=== PATIENT | male | born 1965 | race African-American/Black ===

== ENCOUNTER 2016-05-20 19:58 | Emergency (ER) | payer MEDICAID ==
[2016-05-20 20:23] VITALS: BP 138/105
== END 2016-05-20 21:08 | disposition left against medical advice (07) ==
LOC: ER 19:58
DX: Z53.9 Procedure and treatment not carried out, unspecified reason (principal)

== ENCOUNTER 2016-05-21 17:09 | Emergency (ER) | payer MEDICAID ==
[2016-05-21 17:28] VITALS: BP 141/86
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
[2016-05-21] MEDS ORDERED: DIPH/PERTUSS(ACELL)/TETANUS VAC/PF 0.5 ML SYR (>=10YO) IM ONE (18:18)
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
== END 2016-05-21 19:28 | disposition home or self-care (01) ==
LOC: ER 17:09
DX: S50.11XA Contusion of right forearm, initial encounter (principal); X58.XXXA Exposure to other specified factors, initial encounter; F17.200 Nicotine dependence, unspecified, uncomplicated; I10 Essential (primary) hypertension; Z23 Encounter for immunization
CPT/HCPCS: 90471; 90715; 99283

== ENCOUNTER 2016-06-21 07:41 | Emergency (ER) | payer MEDICAID ==
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
[2016-06-21 09:34] VITALS: BP 166/111
== END 2016-06-21 09:34 | disposition home or self-care (01) ==
LOC: ER 07:41
DX: H57.11 Ocular pain, right eye (principal); H57.8 Other specified disorders of eye and adnexa; I10 Essential (primary) hypertension
CPT/HCPCS: 99283

== ENCOUNTER 2017-07-26 06:16 | Emergency (ER) | payer MEDICAID ==
[2017-07-26] MEDS ORDERED: ASPIRIN 81 MG TABLET, CHEWABLE PO ONE (06:18)
[2017-07-26 06:33] LABS: ABSOLUTE EOSINOPHILS # (AUTO) 0.2 10^3/uL (0.0-0.6); ABSOLUTE MONOCYTES (AUTO) 0.9 10^3/uL (0.1-1.4); ABSOLUTE NEUT (AUTO) 4.4 10^3/uL (1.7-8.2); BASOPHILS % (AUTO) 0.5 % (0-2); EOSINOPHILS % (AUTO) 1.9 % (0-6); HEMATOCRIT 43.6 % (37.9-51.0); HEMOGLOBIN 14.3 g/dL (13.5-17.0); LYMPHOCYTES % (AUTO) 41.6 % (13-45); MEAN CORPUSCULAR HEMOGLOBIN 29.2 pg (27.0-33.4); MEAN CORPUSCULAR HGB CONC 32.9 g/dL (32.0-36.0); MEAN CORPUSCULAR VOLUME 89 fl (80-97); MONOCYTES % (AUTO) 9.5 % (3-13); PLATELET COUNT 270 10^3/uL (150-450); RED CELL DISTRIBUTION WIDTH 13.7 % (11.5-14.0); SEGMENTED NEUTROPHILS % (AUTO) 46.5 % (42-78); TOTAL CELLS COUNTED % (AUTO) 100 %; WHITE BLOOD COUNT 9.6 10^3/uL (4.0-10.5)
[2017-07-26 06:47] LABS: ALANINE AMINOTRANSFERASE 49 U/L (21-72); ALBUMIN 4.2 g/dL (3.5-5.0); ALKALINE PHOSPHATASE 83 U/L (38-126); ANION GAP 11 (5-19); ASPARTATE AMINO TRANSFERASE 27 U/L (17-59); BILIRUBIN,DIRECT 0.2 mg/dL (0.0-0.4); BILIRUBIN,TOTAL 0.4 mg/dL (0.2-1.3); BLOOD UREA NITROGEN 10 mg/dL (7-20); CALCIUM 9.2 mg/dL (8.4-10.2); CARBON DIOXIDE 28 mmol/L (22-30); CHLORIDE 108 mmol/L (98-107); CREATINE KINASE 548 U/L (55-170); GLUCOSE 113 mg/dL (75-110); POTASSIUM 3.8 mmol/L (3.6-5.0); SODIUM 147.4 mmol/L (137-145); TOTAL PROTEIN 6.6 g/dL (6.3-8.2)
[2017-07-26] MEDS ORDERED: NORMAL SALINE 1000 ML 1,000 ML IV ONE ×2 (06:49→08:17)
[2017-07-26 06:58] LABS: CREATINE KINASE MB 2.65 ng/mL (<4.55)
[2017-07-26 07:00] LABS: TROPONIN I < 0.012 ng/mL
--- NOTE | 2017-07-26 07:58 | RADIOLOGY REPORT (SQ) ---
EXAM DESCRIPTION: CHEST 2 VIEWS CLINICAL HISTORY: Chest pain COMPARISON: None. FINDINGS: Frontal and lateral views of the chest. The cardiomediastinal silhouette has normal size and contour. No consolidation, pneumothorax, or pleural effusion. Leads overlie the chest. No displaced rib fractures identified. Upper abdominal soft tissues are unremarkable. IMPRESSION: 1. No acute pulmonary process identified.
--- NOTE | 2017-07-26 08:24 | ER Document Report ---
ED General - General Chief Complaint: Chest Wall Pain Stated Complaint: CHEST WALL PAIN Time Seen by Provider: 07/26/17 06:35 TRAVEL OUTSIDE OF THE [place] IN LAST 30 DAYS: No - HPI Patient complains to provider of: Chest pain Notes: Patient coming in for evaluation chest pain started yesterday around 8 to 9:00 in the morning. Patient states he is walking when the chest pain started and remains consistent states hurts when he moves around especially when he moves his left shoulder. Patient denies any other medical issues denies any fevers chills nausea vomiting diarrhea. Patient states he thinks he may have something wrong with his lungs. Patient denies any smoking alcohol or drug abuse. Patient denies any recent travel. Patient denies any other past medical history states he does not take any medications. Patient resting comfortably upon my evaluation - Related Data Allergies/Adverse Reactions: No Known Allergies Allergy (Verified 06/21/16 08:30) Past Medical History - Social History Smoking Status: Unknown if Ever Smoked Family History: Reviewed & Not Pertinent Patient has suicidal ideation: No Patient has homicidal ideation: No - Past Medical History Cardiac Medical History: Reports: Hx Hypertension Renal/ Medical History: Denies: Hx Peritoneal Dialysis - Immunizations Hx Diphtheria, Pertussis, Tetanus Vaccination: No Review of Systems - Review of Systems Constitutional: No symptoms reported EENT: No symptoms reported Cardiovascular: Chest pain Respiratory: No symptoms reported Gastrointestinal: No symptoms reported Genitourinary: No symptoms reported Male Genitourinary: No symptoms reported Musculoskeletal: No symptoms reported Skin: No symptoms reported Hematologic/Lymphatic: No symptoms reported Neurological/Psychological: No symptoms reported -: Yes All other systems reviewed and negative Physical Exam - Vital signs Vitals: Pulse Ox 98 07/26/17 06:18 Interpretation: Normal - General General appearance: Appears well, Alert - HEENT Head: Normocephalic, Atraumatic Eyes: Normal Pupils: PERRL - Respiratory Respiratory status: No respiratory distress Chest status: Tender - Tenderness to palpation of the anterior chest wall. Reproduces patient's pain Breath sounds: Normal Chest palpation: Normal - Cardiovascular Rhythm: Regular Heart sounds: Normal auscultation Murmur: No - Abdominal Inspection: Normal Distension: No distension Bowel sounds: Normal Tenderness: Nontender Organomegaly: No organomegaly - Back Back: Normal, Nontender - Extremities General upper extremity: Normal inspection, Nontender, Normal color, Normal ROM , Normal temperature, Other - Healing abrasions to bilateral shoulders General lower extremity: Normal inspection, Nontender, Normal color, Normal ROM , Normal temperature, Normal weight bearing. No: Tres's sign - Neurological Neuro grossly intact: Yes Cognition: Normal Orientation: AAOx4 [place] Coma Scale Eye Opening: Spontaneous [place] Coma Scale Verbal: Oriented [place] Coma Scale Motor: Obeys Commands [place] Coma Scale Total: 15 Speech: Normal Motor strength normal: LUE, RUE, LLE, RLE Sensory: Normal - Psychological Associated symptoms: Normal affect, Normal mood - Skin Skin Temperature: Warm Skin Moisture: Dry Skin Color: Normal Course - Re-evaluation Re-evalutation: 07/26/17 08:33 Patient with bilateral abrasions to both shoulders on the posterior. Patient otherwise looks to be resting comfortably. The patient has atypical chest pain as the patient's chest pain is not suggestive of pulmonary embolus, cardiac ischemia, aortic dissection, or other serious etiology. Given the extremely low risk of these diagnoses further testing and evaluation for these possibilities does not appear to be indicated at this time. The patient has been instructed to return if the symptoms worsen or change in any way. Troponins negative 2 chest x-ray negative as well - Vital Signs Vital signs: Temp Pulse Resp BP Pulse Ox 16 145/110 H 96 07/26/17 11:01 07/26/17 11:01 07/26/17 11:01 - Laboratory Result Diagrams: 07/26/17 06:05 07/26/17 06:05 Laboratory results interpreted by me: 07/26/17 07/26/17 06:05 09:28 Sodium 147.4 H Chloride 108 H Glucose 113 H Creatine Kinase 548 H Urine Protein 30 H Discharge - Discharge Clinical Impression: Chest wall pain Condition: Good Disposition: HOME, SELF-CARE Instructions: Chest Wall Pain ([facility]), Anti-Inflammatory Medication ([facility]) Additional Instructions: Your laboratory studies EKG did not show any signs of cardiac ischemia heart attack no signs of infection or pneumonia. I do believe your chest pain is due to inflammation within chest wall. Please make sure he follow-up with your primary care physician for further evaluation would recommend taking Tylenol Motrin for your pain. The only other abnormality was that your urine was very concentrated and your examination does show signs of dehydration would recommend drinking plenty water. Blood pressure was slightly elevated today he will need to have your primary care physician to continue to monitor this to see if you require medications for treatment Forms: Smoking Cessation Education, Elevated Blood Pressure Referrals: LEIF EWISS MD [Primary Care Provider] - Follow up as needed
--- NOTE | 2017-07-26 10:21 | EKG REPORT ---
SEVERITY:- ABNORMAL ECG - SINUS RHYTHM CONSIDER ANTEROSEPTAL INFARCT : Confirmed by: Rabia Tapia 26-Jul-2017 10:20:40
[2017-07-26 10:41] LABS: APPEARANCE,URINE CLEAR; BILIRUBIN,URINE NEGATIVE (NEGATIVE); COLOR,URINE YELLOW; GLUCOSE, URINE NEGATIVE (NEGATIVE); KETONES,URINE NEGATIVE (NEGATIVE); LEUKOCYTE ESTERASE,URINE NEGATIVE (NEGATIVE); NITRITE,URINE NEGATIVE (NEGATIVE); PROTEIN,URINE 30 mg/dL (NEGATIVE); URINE SPECIFIC GRAVITY 1.026; UROBILINOGEN,URINE NEGATIVE mg/dL (<2.0)
[2017-07-26 10:50] LABS: URINE AMPHETAMINES SCREEN NEGATIVE; URINE BARBITURATES SCREEN NEGATIVE; URINE BENZODIAZEPINES SCREEN NEGATIVE; URINE COCAINE SCREEN NEGATIVE; URINE MARIJUANA (THC) SCREEN NEGATIVE; URINE METHADONE SCREEN NEGATIVE; URINE PHENCYCLIDINE SCREEN NEGATIVE
[2017-07-26 11:12] VITALS: BP 145/110
--- NOTE | 2017-07-26 21:15 | EKG REPORT ---
SEVERITY:- ABNORMAL ECG - SINUS RHYTHM CONSIDER ANTEROSEPTAL INFARCT : Confirmed by: Rabia Tapia 26-Jul-2017 21:14:39
== END 2017-07-26 11:54 | disposition home or self-care (01) ==
LOC: ER 06:16
DX: R07.89 Other chest pain (principal); I10 Essential (primary) hypertension
CPT/HCPCS: 93005; 99285; 96360; 96361; 36415; 82553; 82550; 83690; 85025; 80053; 81001; 84484; 80307; 71046; 93010; J7030

== ENCOUNTER 2017-09-27 23:28 | Emergency (ER) | payer MEDICAID ==
[2017-09-28 02:07] LABS: INTERNATIONAL RATION (INR) 0.99; PROTHROMBIN TIME 13.6 SEC (11.4-15.4)
[2017-09-28 02:08] LABS: PARTIAL THROMBOPLASTIN TIME 27.4 SEC (23.5-35.8)
[2017-09-28 02:09] LABS: ABSOLUTE BASOPHILS # (AUTO) 0.1 10^3/uL (0.0-0.2); ABSOLUTE EOSINOPHILS # (AUTO) 0.2 10^3/uL (0.0-0.6); ABSOLUTE LYMPHOCYTES (AUTO) 3.7 10^3/uL (0.5-4.7); ABSOLUTE MONOCYTES (AUTO) 0.9 10^3/uL (0.1-1.4); BASOPHILS % (AUTO) 0.9 % (0-2); EOSINOPHILS % (AUTO) 1.4 % (0-6); HEMATOCRIT 38.9 % (37.9-51.0); HEMOGLOBIN 12.7 g/dL (13.5-17.0); LYMPHOCYTES % (AUTO) 30.8 % (13-45); MEAN CORPUSCULAR HEMOGLOBIN 29.5 pg (27.0-33.4); MEAN CORPUSCULAR HGB CONC 32.7 g/dL (32.0-36.0); MEAN CORPUSCULAR VOLUME 90 fl (80-97); MONOCYTES % (AUTO) 7.9 % (3-13); PLATELET COUNT 348 10^3/uL (150-450); RED BLOOD COUNT 4.32 10^6/uL (4.35-5.55); RED CELL DISTRIBUTION WIDTH 13.8 % (11.5-14.0); TOTAL CELLS COUNTED % (AUTO) 100 %; WHITE BLOOD COUNT 11.9 10^3/uL (4.0-10.5)
[2017-09-28 02:19] LABS: ALANINE AMINOTRANSFERASE 63 U/L (21-72); ALBUMIN 4.2 g/dL (3.5-5.0); ALKALINE PHOSPHATASE 73 U/L (38-126); ANION GAP 11 (5-19); ASPARTATE AMINO TRANSFERASE 40 U/L (17-59); BILIRUBIN,DIRECT 0.4 mg/dL (0.0-0.4); BILIRUBIN,TOTAL 0.6 mg/dL (0.2-1.3); BLOOD UREA NITROGEN 15 mg/dL (7-20); CALCIUM 9.8 mg/dL (8.4-10.2); CARBON DIOXIDE 28 mmol/L (22-30); CHLORIDE 111 mmol/L (98-107); GLUCOSE 114 mg/dL (75-110); LIPASE 28.4 U/L (23-300); POTASSIUM 4.2 mmol/L (3.6-5.0); SODIUM 149.9 mmol/L (137-145); TOTAL PROTEIN 7.1 g/dL (6.3-8.2)
--- NOTE | 2017-09-28 02:35 | RADIOLOGY REPORT (SQ) ---
EXAM DESCRIPTION: XR CHEST 2 VIEWS COMPLETED DATE/TME: 09/28/2017 00:00 CLINICAL HISTORY: 52 years Male, cough COMPARISON: None. FINDINGS: Adequate lung volume, clear parenchyma, normal cardiac silhouette, and intact bony thorax. IMPRESSION: No acute cardiopulmonary findings.
[2017-09-28] MEDS ORDERED: PREDNISONE 20 MG TABLET PO ONE (02:48)
[2017-09-28] MEDS ORDERED: IPRATROPIUM/ALBUTEROL 0.5-2.5 MG/3 ML AMPUL NEB ONE (02:48)
[2017-09-28] MEDS ORDERED: HYDROCODONE/ACETAMINOPHEN 5-325 MG TABLET PO ONE (02:49)
--- NOTE | 2017-09-28 02:52 | ER Document Report ---
ED Respiratory Problem - General Chief Complaint: Vomiting Stated Complaint: VOMITING BLOOD Time Seen by Provider: 09/28/17 01:41 Notes: Patient is a 52-year-old male that comes to the emergency department for chief complaint of 3 weeks of worsening cough, he states over the past day his cough is gotten so bad that he is seen flecks of blood in the sputum. He states he cannot sleep because he is coughing so much. He states he initially did have some fevers, chills, and night sweats. He denies any vomiting. Patient states that he smokes, no diagnosed history of COPD, no daily medications, no reported medical history otherwise. He denies alcohol or recreational drugs. TRAVEL OUTSIDE OF THE [place] IN LAST 30 DAYS: No - Related Data Allergies/Adverse Reactions: No Known Allergies Allergy (Verified 06/21/16 08:30) Past Medical History - General Information source: Patient - Social History Smoking Status: Current Every Day Smoker Smoking Education Provided: Yes - <3 min Drug Abuse: None Lives with: Alone Family History: Reviewed & Not Pertinent - Past Medical History Cardiac Medical History: Reports: Hx Hypertension Pulmonary Medical History: Reports: Hx Bronchitis Renal/ Medical History: Denies: Hx Peritoneal Dialysis - Immunizations Hx Diphtheria, Pertussis, Tetanus Vaccination: No Review of Systems - Review of Systems Constitutional: No symptoms reported EENT: No symptoms reported Cardiovascular: No symptoms reported Respiratory: See HPI Gastrointestinal: No symptoms reported Genitourinary: No symptoms reported Male Genitourinary: No symptoms reported Musculoskeletal: No symptoms reported Skin: No symptoms reported Hematologic/Lymphatic: No symptoms reported Neurological/Psychological: No symptoms reported Physical Exam - Vital signs Vitals: Temp Pulse Resp BP Pulse Ox 98.2 F 84 20 135/89 H 95 09/28/17 00:02 09/28/17 00:02 09/28/17 00:02 09/28/17 00:02 09/28/17 00:02 - Notes Notes: GENERAL: Alert, interacts well. No acute distress. HEAD: Normocephalic, atraumatic. EYES: Pupils equal, round, and reactive to light. Extraocular movements intact. ENT: Oral mucosa moist, tongue midline. NECK: Full range of motion. Supple. Trachea midline. LUNGS: Very frequent cough, expiratory wheezes, few scattered rhonchi, minimal tachypnea. No rales. HEART: Regular rate and rhythm. No murmur ABDOMEN: Soft, non-tender. Non-distended. Bowel sounds present in all 4 quadrants. EXTREMITIES: Moves all 4 extremities spontaneously. No edema, normal radial and dorsalis pedis pulses bilaterally. No cyanosis. BACK: no cervical, thoracic, lumbar midline tenderness. No saddle anesthesia, normal distal neurovascular exam. NEUROLOGICAL: Alert and oriented x3. Normal speech. [cranial nerves II through XII grossly intact]. PSYCH: Normal affect, normal mood. SKIN: Warm, dry, normal turgor. No rashes or lesions noted. Course - Re-evaluation Re-evalutation: Patient initially with wheezes, rhonchi, cough. He reports coughing up blood and small flecks. Chest x-ray is unremarkable. No hypoxia or respiratory distress. Wheezing resolved after DuoNeb treatment. Patient feels much better and is not coughing nonstop after medications. Remaining workup is nonspecific. Initial workup placed for vomiting blood according to listed complaint in the computer system and was placed by protocol. Examination is consistent with bronchitis. Discussed smoking cessation, medications, follow-up , and return precautions in detail with patient. Patient states satisfaction and agreement with plan. - Vital Signs Vital signs: Temp Pulse Resp BP Pulse Ox 98.2 F 82 18 178/88 H 97 09/28/17 00:02 09/28/17 04:54 09/28/17 04:54 09/28/17 04:54 09/28/17 04:54 - Laboratory Result Diagrams: 09/28/17 01:52 09/28/17 01:52 Laboratory results interpreted by me: 09/28/17 09/28/17 01:52 01:52 WBC 11.9 H RBC 4.32 L Hgb 12.7 L Sodium 149.9 H Chloride 111 H Glucose 114 H Discharge - Discharge Clinical Impression: Cough, Wheezing, Tobacco abuse Upper respiratory infection Qualifiers: URI type: unspecified URI Qualified Code(s): J06.9 - Acute upper respiratory infection, unspecified Condition: Stable Disposition: HOME, SELF-CARE Additional Instructions: Your workup does not show pneumonia or other concerning abnormality. Your evaluation indicates bronchitis. Take the prednisone as prescribed, use the albuterol inhaler, take syrup if needed for cough, drink plenty fluids and rest. Stop smoking. Follow-up with your primary care provider within the next several days for additional evaluation and management. Return if you worsen including spiking fever, difficulty breathing, passing out, or any other concerning or worsening symptoms. Prescriptions: Hydrocodone Bit/Homatropine [Hycodan Syrup 5-1.5 mg/5 ml Ud Cup] 5 ml PO Q4HP PRN #120 ml PRN Reason: Albuterol Sulfate [Proair HFA Inhalation Aerosol 8.5 gm MDI] 2 puff IH Q4H PRN # 1 mdi PRN Reason: Prednisone 60 mg PO DAILY #15 tablet
[2017-09-28] MEDS ORDERED: ALBUTEROL SULFATE HFA (90 MCG/PUFF) 8 GM MDI (1 MDI/ER DISP) IH ONE (03:33)
[2017-09-28 04:55] VITALS: BP 178/88
== END 2017-09-28 04:53 | disposition home or self-care (01) ==
LOC: ER 23:28
DX: J06.9 Acute upper respiratory infection, unspecified (principal); R06.2 Wheezing; R04.2 Hemoptysis; I10 Essential (primary) hypertension; F17.200 Nicotine dependence, unspecified, uncomplicated
CPT/HCPCS: 94640; 99284; 36415; 80307; 83690; 85025; 85610; 85730; 80053; 71046; J7512; J3490; J7620

== ENCOUNTER 2017-10-13 11:29 | Emergency (ER) | payer MEDICAID ==
--- NOTE | 2017-10-13 11:48 | ER Document Report ---
ED Medical Screen (RME) - General Chief Complaint: Abdominal Pain Stated Complaint: RIGHT SIDE PAIN Time Seen by Provider: 10/13/17 11:42 Notes: Patient is a 52-year-old male who presents with 1 week of right upper quadrant abdominal pain that is worse when he coughs. He was diagnosed with bronchitis and is taking prednisone and doxycycline. No history of liver or gallbladder issues. Denies nausea, vomiting or fevers. PE: RUQ tenderness. Normal bowel sounds. I have greeted and performed a rapid initial assessment of this patient. A comprehensive ED assessment and evaluation of the patient, analysis of test results and completion of the medical decision making process will be conducted by additional ED providers. TRAVEL OUTSIDE OF THE [place] IN LAST 30 DAYS: No - Related Data Allergies/Adverse Reactions: No Known Allergies Allergy (Verified 10/13/17 11:29) Past Medical History - Social History Chew tobacco use (# tins/day): No Frequency of alcohol use: None Drug Abuse: None - Past Medical History Cardiac Medical History: Reports: Hx Hypertension Pulmonary Medical History: Reports: Hx Bronchitis Renal/ Medical History: Denies: Hx Peritoneal Dialysis - Immunizations Hx Diphtheria, Pertussis, Tetanus Vaccination: No Physical Exam - Vital signs Vitals: Temp Pulse Resp BP Pulse Ox 97.8 F 73 18 144/86 H 98 10/13/17 11:35 10/13/17 11:35 10/13/17 11:35 10/13/17 11:35 10/13/17 11:35 Course - Vital Signs Vital signs: Temp Pulse Resp BP Pulse Ox 97.8 F 73 18 144/86 H 98 10/13/17 11:35 10/13/17 11:35 10/13/17 11:35 10/13/17 11:35 10/13/17 11:35
[2017-10-13 12:05] LABS: ABSOLUTE BASOPHILS # (AUTO) 0.1 10^3/uL (0.0-0.2); ABSOLUTE EOSINOPHILS # (AUTO) 0.2 10^3/uL (0.0-0.6); ABSOLUTE LYMPHOCYTES (AUTO) 2.2 10^3/uL (0.5-4.7); ABSOLUTE MONOCYTES (AUTO) 0.6 10^3/uL (0.1-1.4); ABSOLUTE NEUT (AUTO) 5.6 10^3/uL (1.7-8.2); BASOPHILS % (AUTO) 1.1 % (0-2); HEMATOCRIT 39.1 % (37.9-51.0); HEMOGLOBIN 13.3 g/dL (13.5-17.0); LYMPHOCYTES % (AUTO) 25.2 % (13-45); MEAN CORPUSCULAR HEMOGLOBIN 30.4 pg (27.0-33.4); MEAN CORPUSCULAR HGB CONC 34.1 g/dL (32.0-36.0); MEAN CORPUSCULAR VOLUME 89 fl (80-97); MONOCYTES % (AUTO) 7.1 % (3-13); PLATELET COUNT 232 10^3/uL (150-450); RED BLOOD COUNT 4.38 10^6/uL (4.35-5.55); SEGMENTED NEUTROPHILS % (AUTO) 64.6 % (42-78); TOTAL CELLS COUNTED % (AUTO) 100 %; WHITE BLOOD COUNT 8.6 10^3/uL (4.0-10.5)
--- NOTE | 2017-10-13 12:12 | ER Document Report ---
ED General - General Chief Complaint: Abdominal Pain Stated Complaint: RIGHT SIDE PAIN Time Seen by Provider: 10/13/17 11:42 TRAVEL OUTSIDE OF THE [place] IN LAST 30 DAYS: No - Related Data Allergies/Adverse Reactions: No Known Allergies Allergy (Verified 10/13/17 11:29) Past Medical History - Social History Smoking Status: Current Every Day Smoker Chew tobacco use (# tins/day): No Frequency of alcohol use: None Drug Abuse: None Family History: Reviewed & Not Pertinent Patient has suicidal ideation: No Patient has homicidal ideation: No - Past Medical History Cardiac Medical History: Reports: Hx Hypertension Pulmonary Medical History: Reports: Hx Bronchitis Renal/ Medical History: Denies: Hx Peritoneal Dialysis - Immunizations Hx Diphtheria, Pertussis, Tetanus Vaccination: No Physical Exam - Vital signs Vitals: Temp Pulse Resp BP Pulse Ox 97.8 F 73 18 144/86 H 98 10/13/17 11:35 10/13/17 11:35 10/13/17 11:35 10/13/17 11:35 10/13/17 11:35 Course - Vital Signs Vital signs: Temp Pulse Resp BP Pulse Ox 97.8 F 73 18 144/86 H 98 10/13/17 11:35 10/13/17 11:35 10/13/17 11:35 10/13/17 11:35 10/13/17 11:35 - Laboratory Result Diagrams: 10/13/17 11:52 10/13/17 11:52
--- NOTE | 2017-10-13 12:14 | ER Document Report ---
ED General - General Chief Complaint: Abdominal Pain Stated Complaint: RIGHT SIDE PAIN Time Seen by Provider: 10/13/17 11:42 Mode of Arrival: Ambulatory Information source: Patient TRAVEL OUTSIDE OF THE [place] IN LAST 30 DAYS: No - HPI Notes: 52-year-old male presents to the ED with complaints of right upper quadrant abdominal pain for the last week, denies any vomiting but reports he is spitting up, did have a couple episodes of loose stool couple days ago. She denies history of asthma. States she still has a productive cough. Patient is just getting over a bronchitis, finished doxycycline and prednisone that he was given on 09/26/2017 here in the emergency room. States he smokes a pack of cigarettes every 1-2 days. Denies any new travel, food is new to doxycycline and prednisone however this pain did not start until 1 week after he started medication. Denies fevers, chills, chest pain,palpitations, shortness of breath, dyspnea, hematuria,blurred vision, double vision, loss of vision, speech changes, LH, dizziness, syncope, headaches, wheezing, ST, URI, neck pain , weakness, bowel or bladder dysfunction, saddle anesthesia, numbness or tingling in bilateral upper or lower extremities equally, muscle paralysis, weakness in bilateral upper or lower extremities equally or rash. Denies IV drug use. - Related Data Allergies/Adverse Reactions: No Known Allergies Allergy (Verified 10/13/17 11:29) Past Medical History - General Information source: Patient - Social History Smoking Status: Current Every Day Smoker Chew tobacco use (# tins/day): No Frequency of alcohol use: None Drug Abuse: None Family History: Reviewed & Not Pertinent Patient has suicidal ideation: No Patient has homicidal ideation: No - Past Medical History Cardiac Medical History: Reports: Hx Hypertension Pulmonary Medical History: Reports: Hx Bronchitis Renal/ Medical History: Denies: Hx Peritoneal Dialysis - Immunizations Hx Diphtheria, Pertussis, Tetanus Vaccination: No Review of Systems - Review of Systems Constitutional: No symptoms reported EENT: No symptoms reported Cardiovascular: No symptoms reported Respiratory: See HPI Gastrointestinal: See HPI Genitourinary: No symptoms reported Male Genitourinary: No symptoms reported Musculoskeletal: No symptoms reported Skin: No symptoms reported Hematologic/Lymphatic: No symptoms reported Neurological/Psychological: No symptoms reported Physical Exam - Vital signs Vitals: Temp Pulse Resp BP Pulse Ox 97.8 F 73 18 144/86 H 98 10/13/17 11:35 10/13/17 11:35 10/13/17 11:35 10/13/17 11:35 10/13/17 11:35 - Notes Notes: PHYSICAL EXAMINATION: GENERAL: Well-appearing, well-nourished and in no acute distress. HEAD: Atraumatic, normocephalic. EYES: Pupils equal round and reactive to light, extraocular movements intact, sclera anicteric, conjunctiva are normal. ENT: Nares patent, oropharynx clear without exudates. Moist mucous membranes. NECK: Normal range of motion, supple without lymphadenopathy LUNGS: Breath sounds clear to auscultation bilaterally and equal. No wheezes rales or rhonchi. HEART: Regular rate and rhythm without murmurs ABDOMEN: Soft, RUQ tenderness with palpation, + rebound tenderness, + Gideon's sign. nondistended abdomen. No guarding, no rebound. No masses appreciated. Musculoskeletal: Normal range of motion, no pitting or edema. No cyanosis. NEUROLOGICAL: Cranial nerves grossly intact. Normal speech, normal gait. Normal sensory, motor exams PSYCH: Normal mood, normal affect. SKIN: Warm, Dry, normal turgor, no rashes or lesions noted. Course - Re-evaluation Re-evalutation: 10/13/17 12:41 52-year-old male presents to the ED for evaluation of right upper quadrant tenderness. CBC negative for leukocytosis or anemia, CMP negative for any renal or hepatic dysfunction, electrolytes normal. Lipase normal. Chest x-ray within normal limits. Ultrasound abdomen unremarkable. No gallbladder wall thickening. After performing a Medical Screening Examination, I estimate there is LOW risk for ACUTE APPENDICITIS, BOWEL OBSTRUCTION, ACUTE CHOLECYSTITIS, PERFORATED DIVERTICULITIS, INCARCERATED HERNIA , PANCREATITIS, TESTICULAR TORSION or PERFORATED ULCER, thus I consider the discharge disposition reasonable. Also, there is no evidence or peritonitis, sepsis, or toxicity. I have reevaluated this patient multiple times and no significant life threatening changes are noted. The patient and I have discussed the diagnosis and risks, and we agree with discharging home with close follow-up with the understanding that symptoms and presentations can change. We also discussed returning to the Emergency Department immediately if new or worsening symptoms occur. We have discussed the symptoms which are most concerning (e.g., bloody stool, fever, changing or worsening pain, intractable vomiting - standard verbal up date) that necessitate immediate return.Medication warnings reviewed. All questions and concerns answered by this provider. Patient is in agreement with this plan and has verbalized understanding of return precautions and the need for primary care follow-up in the next 24-72 hours. Patient verbalized understanding of plan of care and agree with plan of care. - Vital Signs Vital signs: Temp Pulse Resp BP Pulse Ox 97.8 F 73 18 144/86 H 98 10/13/17 11:35 10/13/17 11:35 10/13/17 11:35 10/13/17 11:35 10/13/17 11:35 - Laboratory Result Diagrams: 10/13/17 11:52 10/13/17 11:52 Laboratory results interpreted by me: 10/13/17 10/13/17 11:52 11:52 Hgb 13.3 L Potassium 3.5 L Glucose 165 H Discharge - Discharge Clinical Impression: RUQ abdominal pain Acute bronchitis Qualifiers: Bronchitis organism: unspecified organism Qualified Code(s): J20.9 - Acute bronchitis, unspecified Condition: Stable Instructions: Abdominal Pain ([facility]), Bronchitis ([facility]), Low-Fat Diet ([facility]), Potassium ([facility]) Prescriptions: Benzonatate [Tessalon Perles 100 mg Capsule] 100 mg PO Q8HP PRN #20 capsule PRN Reason: Albuterol Sulfate [Ventolin Hfa] 1 - 2 puff IH Q4 PRN #1 hfa.aer.ad PRN Reason: Famotidine [Pepcid 20 mg Tablet] 20 mg PO DAILY #12 tablet Prednisone [Deltasone 20 mg Tablet] 3 tab PO DAILY 5 Days #15 tablet Referrals: JOLENE SOTO MD [NO LOCAL MD] - Follow up in 3-5 days LATRICE RODAS MD [ACTIVE STAFF] - Follow up in 3-5 days
[2017-10-13] MEDS ORDERED: IPRATROPIUM/ALBUTEROL 0.5-2.5 MG/3 ML AMPUL NEB ONE (12:22)
[2017-10-13 12:23] LABS: ALANINE AMINOTRANSFERASE 40 U/L (21-72); ALKALINE PHOSPHATASE 80 U/L (38-126); ANION GAP 11 (5-19); ASPARTATE AMINO TRANSFERASE 22 U/L (17-59); BILIRUBIN,DIRECT 0.2 mg/dL (0.0-0.4); BILIRUBIN,TOTAL 0.8 mg/dL (0.2-1.3); BLOOD UREA NITROGEN 12 mg/dL (7-20); CALCIUM 9.1 mg/dL (8.4-10.2); CARBON DIOXIDE 28 mmol/L (22-30); CHLORIDE 106 mmol/L (98-107); GLUCOSE 165 mg/dL (75-110); LIPASE 30.8 U/L (23-300); POTASSIUM 3.5 mmol/L (3.6-5.0); SODIUM 144.7 mmol/L (137-145); TOTAL PROTEIN 6.7 g/dL (6.3-8.2)
[2017-10-13] MEDS ORDERED: FAMOTIDINE 20 MG TABLET PO ONE (12:23)
[2017-10-13] MEDS ORDERED: NORMAL SALINE 1000 ML 1,000 ML IV PRN (12:25)
--- NOTE | 2017-10-13 12:40 | RADIOLOGY REPORT (SQ) ---
EXAM DESCRIPTION: CHEST 2 VIEWS COMPLETED DATE/TIME: 10/13/2017 12:33 pm REASON FOR STUDY: productive cough x 2 weeks, finished abx x5dago COMPARISON: 09/28/2017 EXAM PARAMETERS: NUMBER OF VIEWS: two views TECHNIQUE: Digital Frontal and Lateral radiographic views of the chest acquired. RADIATION DOSE: NA LIMITATIONS: none FINDINGS: LUNGS AND PLEURA: No opacities, masses or pneumothorax. No pleural effusion. MEDIASTINUM AND HILAR STRUCTURES: No masses or contour abnormalities. HEART AND VASCULAR STRUCTURES: Heart normal size. No evidence for failure. BONES: No acute findings. HARDWARE: None in the chest. OTHER: No other significant finding. IMPRESSION: NO ACUTE RADIOGRAPHIC FINDING IN THE CHEST. TECHNICAL DOCUMENTATION: JOB ID: [id number] [employer]- All Rights Reserved Reading location - IP/workstation name: [email or web address]
--- NOTE | 2017-10-13 15:26 | RADIOLOGY REPORT (SQ) ---
EXAM DESCRIPTION: U/S ABDOMEN LIMITED W/O DOP COMPLETED DATE/TIME: 10/13/2017 3:13 pm REASON FOR STUDY: RUQ tenderness COMPARISON: None. TECHNIQUE: Dynamic and static grayscale images acquired of the abdomen and recorded on PACS. Additio nal selected color Doppler and spectral images recorded. LIMITATIONS: None. FINDINGS: PANCREAS: No masses. Visualized pancreatic duct normal caliber. LIVER: No masses. Echotexture normal. LIVER VASCULATURE: Normal directional flow of the main portal vein and hepatic veins. GALLBLADDER: No stones. Normal wall thickness. No pericholecystic fluid. ULTRASOUND-DETECTED MCGOWAN'S SIGN: Negative. INTRAHEPATIC DUCTS AND COMMON DUCT: CBD and intrahepatic ducts normal caliber. No filling defects. INFERIOR VENA CAVA: Normal flow. AORTA: No aneurysm. RIGHT KIDNEY: Normal size. Normal echogenicity. No solid or suspicious masses. No hydronephrosis. No calcifications. PERITONEAL AND RIGHT PLEURAL SPACE: No ascites or effusions. OTHER: No other significant findings. IMPRESSION: NORMAL RIGHT UPPER QUADRANT ULTRASOUND. TECHNICAL DOCUMENTATION: JOB ID: [id number] [employer]- All Rights Reserved Reading location - IP/workstation name: [email or web address]
[2017-10-13 16:00] VITALS: BP 146/97
== END 2017-10-13 16:00 | disposition home or self-care (01) ==
LOC: ER 11:29
DX: J20.9 Acute bronchitis, unspecified (principal); R10.11 Right upper quadrant pain; F17.210 Nicotine dependence, cigarettes, uncomplicated; I10 Essential (primary) hypertension
CPT/HCPCS: 94640; 99284; 96360; 36415; 83690; 85025; 80053; 71046; 76705; J7030; J7620

== ENCOUNTER 2019-01-01 10:59 | Observation (INO) | payer MEDICAID ==
--- NOTE | 2019-01-01 11:19 | ER Document Report ---
ED Medical Screen (RME) - General Chief Complaint: Chest Pain Stated Complaint: CHEST PAIN Time Seen by Provider: 01/01/19 11:15 Mode of Arrival: Medic Information source: Patient Notes: This 53-year-old male presents to the emergency department via EMS from his primary care provider's office for chest pain reports midsternal chest pain that radiates to his back. Patient is extremely tired. EKG shows T wave change in lead III. Patient denies chest pain now. Reports he received aspirin and nitro from EMS and nitro took away the chest pain. No complaints of nausea vomiting diarrhea. Denies history of cardiac disease. I have greeted and performed a rapid initial assessment of this patient. A comprehensive ED assessment and evaluation of the patient, analysis of test results and completion of the medical decision making process will be conducted by additional ED providers. Dictation of this chart was performed using voice recognition software; therefore, there may be some unintended grammatical errors. TRAVEL OUTSIDE OF THE [place] IN LAST 30 DAYS: No - Related Data Allergies/Adverse Reactions: No Known Allergies Allergy (Verified 01/01/19 11:14) Past Medical History - Past Medical History Cardiac Medical History: Reports: Hx Hypertension Pulmonary Medical History: Reports: Hx Bronchitis Renal/ Medical History: Denies: Hx Peritoneal Dialysis - Immunizations Hx Diphtheria, Pertussis, Tetanus Vaccination: No
[2019-01-01 11:42] LABS: ABSOLUTE EOSINOPHILS # (AUTO) 0.1 10^3/uL (0.0-0.6); ABSOLUTE LYMPHOCYTES (AUTO) 2.1 10^3/uL (0.5-4.7); ABSOLUTE MONOCYTES (AUTO) 0.6 10^3/uL (0.1-1.4); ABSOLUTE NEUT (AUTO) 3.6 10^3/uL (1.7-8.2); BASOPHILS % (AUTO) 0.7 % (0-2); HEMATOCRIT 41.8 % (37.9-51.0); HEMOGLOBIN 13.8 g/dL (13.5-17.0); LYMPHOCYTES % (AUTO) 32.9 % (13-45); MEAN CORPUSCULAR HGB CONC 32.9 g/dL (32.0-36.0); MEAN CORPUSCULAR VOLUME 91 fl (80-97); MONOCYTES % (AUTO) 9.4 % (3-13); PLATELET COUNT 214 10^3/uL (150-450); RED CELL DISTRIBUTION WIDTH 13.8 % (11.5-14.0); TOTAL CELLS COUNTED % (AUTO) 100 %; WHITE BLOOD COUNT 6.4 10^3/uL (4.0-10.5)
--- NOTE | 2019-01-01 12:03 | RADIOLOGY REPORT (SQ) ---
EXAM DESCRIPTION: CHEST 2 VIEWS COMPLETED DATE/TIME: 01/01/2019 11:45 am REASON FOR STUDY: cp COMPARISON: Two-view chest 10/13/2017, 09/28/2017, 07/26/2017 EXAM PARAMETERS: NUMBER OF VIEWS: two views TECHNIQUE: Digital Frontal and Lateral radiographic views of the chest acquired. RADIATION DOSE: NA LIMITATIONS: none FINDINGS: LUNGS AND PLEURA: No opacities, masses or pneumothorax. No pleural effusion. MEDIASTINUM AND HILAR STRUCTURES: No masses or contour abnormalities. HEART AND VASCULAR STRUCTURES: Heart normal size. No evidence for failure. BONES: No acute findings. HARDWARE: None in the chest. OTHER: No other significant finding. IMPRESSION: NO ACUTE RADIOGRAPHIC FINDING IN THE CHEST. TECHNICAL DOCUMENTATION: JOB ID: [id number] [employer]- All Rights Reserved Reading location - IP/workstation name: [email or web address]
[2019-01-01 12:07] LABS: ALKALINE PHOSPHATASE 77 U/L (38-126); ANION GAP 9 (5-19); ASPARTATE AMINO TRANSFERASE 21 U/L (17-59); BILIRUBIN,DIRECT 0.1 mg/dL (0.0-0.4); BILIRUBIN,TOTAL 0.7 mg/dL (0.2-1.3); BLOOD UREA NITROGEN 12 mg/dL (7-20); CALCIUM 8.8 mg/dL (8.4-10.2); CARBON DIOXIDE 26 mmol/L (22-30); CHLORIDE 105 mmol/L (98-107); CREATINE KINASE 208 U/L (55-170); GLUCOSE 93 mg/dL (75-110); POTASSIUM 4.1 mmol/L (3.6-5.0); TOTAL PROTEIN 6.7 g/dL (6.3-8.2)
--- NOTE | 2019-01-01 12:21 | ER Document Report ---
ED Cardiac - General Chief Complaint: Chest Pain Stated Complaint: CHEST PAIN Time Seen by Provider: 01/01/19 11:15 Mode of Arrival: Medic Information source: Patient, Relative TRAVEL OUTSIDE OF THE [place] IN LAST 30 DAYS: No - HPI Notes: 53-year-old male presents via EMS to the ED from PCPs office for complaints of chest pain with left-sided numbness and tingling, patient was given 324 baby aspirin and 0.4 mg sublingual of nitro which resolved his chest pain prior to arrival to ED. Per patient's report, states that he had left-sided chest pain that was sharp started around 8 PM yesterday lasted for about 10 minutes then resolved. States this morning he woke up, when he moved to the side he felt left-sided chest pain with left-sided numbness and tingling in his arms and legs, this lasted until 8:30 in the morning, patient was able to ambulate a round, went to [place] to get coffee in the dollar store. Female wire mill rover was concerned and advised patient to go to primary care office. patient went to [facility], this is where EMS was called and brought to [facility] ED. 04/08/2 pack-a-day smoker for the last 30 years, his mother did pass away from a fatal NE at the age of 48 yrs old. Patient denies being on any blood pressure medications or have any cardiac issues prior to this event. Patient denies any numbness or tingling in his left upper or left lower extremities. patient is somewhat a poor historian, unable to respond to questions without extensive questioning. Denies fevers, chills, palpitations, shortness of breath, dyspnea, nausea, vomiting, diarrhea, abdominal pain, hematuria,blurred vision, double vision, loss of vision, speech changes, LH, dizziness, syncope, headaches, wheezing, ST, URI, neck pain, weakness, bowel or bladder dysfunction, saddle anesthesia, muscle paralysis, weakness in bilateral upper or lower extremities equally or rash. - Related Data Allergies/Adverse Reactions: No Known Allergies Allergy (Verified 01/01/19 11:14) Past Medical History - General Information source: Patient, Relative - Social History Smoking Status: Never Smoker Chew tobacco use (# tins/day): No Frequency of alcohol use: None Drug Abuse: None Family History: Reviewed & Not Pertinent Patient has suicidal ideation: No Patient has homicidal ideation: No - Past Medical History Cardiac Medical History: Reports: Hx Hypertension Pulmonary Medical History: Reports: Hx Bronchitis Renal/ Medical History: Denies: Hx Peritoneal Dialysis - Immunizations Hx Diphtheria, Pertussis, Tetanus Vaccination: No Review of Systems - Review of Systems Constitutional: No symptoms reported EENT: No symptoms reported Cardiovascular: See HPI Respiratory: No symptoms reported Gastrointestinal: No symptoms reported Genitourinary: No symptoms reported Male Genitourinary: No symptoms reported Musculoskeletal: No symptoms reported Skin: No symptoms reported Hematologic/Lymphatic: No symptoms reported Neurological/Psychological: No symptoms reported Physical Exam - Vital signs Vitals: Temp Pulse Resp BP Pulse Ox 97.3 F 73 16 136/99 H 99 01/01/19 11:04 01/01/19 11:04 01/01/19 11:04 01/01/19 11:04 01/01/19 11:04 - Notes Notes: PHYSICAL EXAMINATION: GENERAL: Well-appearing, well-nourished and in no acute distress. HEAD: Atraumatic, normocephalic. EYES: Pupils equal round and reactive to light, extraocular movements intact, sclera anicteric, conjunctiva are normal. ENT: Nares patent, oropharynx clear without exudates. Moist mucous membranes. NECK: Normal range of motion, supple without lymphadenopathy LUNGS: Breath sounds clear to auscultation bilaterally and equal. No wheezes rales or rhonchi. HEART: Regular rate and rhythm without murmurs ABDOMEN: Soft, nontender, nondistended abdomen. No guarding, no rebound. No ma sses appreciated. Musculoskeletal: Normal range of motion, no pitting or edema. No cyanosis. NEUROLOGICAL: Cranial nerves grossly intact. Normal speech, normal gait. Normal sensory, motor exams. PERRLA, EOMI. Full motor and sensory function throughout. Cupola Tender + 2 equal bilaterally in BUE. Tongue midline. No pronator drift. No ataxia. Neck with APROM. Raises eyebrows. Strength is 5 out of 5 in bilateral upper and lower extremities equally.Speaks in full sentences. No weakness on one side. Romberg gait steady able to walk straight line. Able to recall 5 objects. PSYCH: Normal mood, normal affect. SKIN: Warm, Dry, normal turgor, no rashes or lesions noted. - Neurological Neuro grossly intact: Yes Orientation: AAOx4 Saurabh Coma Scale Eye Opening: Spontaneous Saurabh Coma Scale Verbal: Oriented Mead Coma Scale Motor: Obeys Commands Saurabh Coma Scale Total: 15 Speech: Normal Cranial nerves: Normal Cerebellar coordination: Normal Motor strength normal: LUE, RUE, LLE, RLE Additional motor exam normals: Equal bottle feeder Babinski reflex: Normal (flexor plantar) Sensory: Normal Biceps - Reflex grade: 2 = Normal Triceps - Reflex grade: 2 = Normal Brachioradialis - Reflex grade: 2 = Normal Knee - Reflex grade: 2 = Normal Ankle - Reflex grade: 2 = Normal Course - Re-evaluation Re-evalutation: 01/01/19 12:21 Afebrile slightly hypertensive, in no acute distress. EKG negative for STEMI, first set of troponin negative, CBC negative for leukocytosis, CMP negative for hepatic or renal dysfunction, no electrolyte disturbances. Chest x-ray unremarkable. CT head shows no acute stroke, this was ordered due to patient stating that he was having left arm numbness and tingling and stated that he had left lower leg numbness and tingling which had resolved prior to going to the doctor's and lasted for approximately 2 hours this morning. Due to risk factors being a half a pack a day to a 2 pack-a-day smoker, being -[place], his mother passing away at age 48 from a fatal NE and having chest pain resolved with nitro, consulted with Dr. Cindy Orellana, hospitalist who will place patient in observation for unstable angina. Patient was agreeable with this plan of care and verbalized understanding of this plan of care. Patient will be placed on telemetry unit under medical service - Vital Signs Vital signs: Temp Pulse Resp BP Pulse Ox 97.8 F 62 20 134/101 H 98 01/01/19 15:10 01/01/19 15:10 01/01/19 15:10 01/01/19 15:10 01/01/19 15:10 - Laboratory Result Diagrams: 01/01/19 11:27 01/01/19 11:27 Laboratory results interpreted by me: 01/01/19 11:27 Creatine Kinase 208 H - EKG Interpretation by Me Additional EKG results interpreted by me: 01/01/19 12:15 EKG shows T wave change in lead III. No ST segment changes. Discharge - Discharge Clinical Impression: Unstable angina Condition: Stable Disposition: ADMITTED OBSERVATION Admitting Provider: Reyna (Hospitalist) Unit Admitted: Telemetry
[2019-01-01 12:30] LABS: CREATINE KINASE MB 1.63 ng/mL (<4.55)
[2019-01-01 12:31] LABS: TROPONIN I < 0.012 ng/mL
--- NOTE | 2019-01-01 12:36 | RADIOLOGY REPORT (SQ) ---
EXAM DESCRIPTION: CT HEAD WITHOUT COMPLETED DATE/TIME: 01/01/2019 12:27 pm REASON FOR STUDY: left sided n/t x 2 hours, resolved COMPARISON: None. TECHNIQUE: Axial images acquired through the brain without intravenous contrast. Images reviewed wi th bone, brain and subdural windows. Additional sagittal and coronal reconstructions were generated. Images stored on PACS. All CT scanners at this facility use dose modulation, iterative reconstruction, and/or weight based d osing when appropriate to reduce radiation dose to as low as reasonably achievable (ALARA). [facility]: Dose Right [facility]: CareDose [facility]: Dose Right [facility]: Teradose 4D [facility]: Accrue [employer] RADIATION DOSE: CT Rad equipment meets quality standard of care and radiation dose reduction techniq ues were employed. CTDIvol: 53.2 mGy. DLP: 991 mGy-cm. mGy. LIMITATIONS: None. FINDINGS: VENTRICLES: Normal size and contour. CEREBRUM: No masses. No hemorrhage. No midline shift. No evidence for acute infarction. Normal gra y/white matter differentiation. No areas of low density in the white matter. CEREBELLUM: No masses. No hemorrhage. No alteration of density. No evidence for acute infarction. EXTRAAXIAL SPACES: No fluid collections. No masses. ORBITS AND GLOBE: No intra- or extraconal masses. Normal contour of globe without masses. CALVARIUM: No fracture. PARANASAL SINUSES: No fluid or mucosal thickening. SOFT TISSUES: No mass or hematoma. OTHER: No other significant finding. IMPRESSION: No acute intracranial pathology. EVIDENCE OF ACUTE STROKE: NO. COMMENT: Quality ID # [id number]: Final reports with documentation of one or more dose reduction techniques (e.g., Automated exposure control, adjustment of the mA and/or kV according to patient size, use of iterative reconstruction technique) TECHNICAL DOCUMENTATION: JOB ID: [id number] [employer]- All Rights Reserved Reading location - IP/workstation name: [email or web address]
[2019-01-01] MEDS ORDERED: IPRATROPIUM/ALBUTEROL 0.5-2.5 MG/3 ML AMPUL NEB PRN (13:58)
[2019-01-01] MEDS ORDERED: NORMAL SALINE 1000 ML 1,000 ML IV PRN (13:58)
[2019-01-01] MEDS ORDERED: ONDANSETRON HCL INJ/PF 4 MG/2 ML SDV IV PRN (13:58)
[2019-01-01] MEDS ORDERED: TEMAZEPAM 7.5 MG CAPSULE PO PRN (13:58)
--- NOTE | 2019-01-01 14:59 | PDOC H&P ---
History of Present Illness Admission Date/PCP: 01/01/19 13:07 RAJNI MODI MD History of Present Illness: VANESSA SYLVESTER JR is a 53 year old male past medical history of untreated h ypertension, heavy smoker for the last 30 years, presenting to ED complaining of chest pain. Brought in to ED via EMS from PCP after complaining of left-sided chest pain, left-sided numbness and tingling, was given 324 mg aspirin, sublingual nitroglycerin which resolved his chest pain. Pain is started yesterday, at 8 PM, left-sided, sharp, lasted about 10 minutes then resolved, worse with movement, alleviated by rest. This morning when he woke up and moved to the side he left-sided chest pain and left-sided numbness and tingling of his arms and legs, lasted about 30 minutes, able to ambulate, female backer up urged him to go to see PCP, went to [facility], EMS was called and [facility]. Chest pain left-sided, sharp, 4/5, worse with movement alleviated with nitroglycerin, associated with left-sided numbness and tingling, denies any diaphoresis, lightheadedness, palpitation. Patient is a heavy smoker, family history is positive CAD in her mother side, of [place] at age 48, was told he has high blood pressure but is not taking any medication. On my encounter patient comfortably resting in bed, chest pain resolved, denies any shortness of breath, nausea, vomiting, diarrhea, abdominal pain, hematuria, constipation, urinary symptoms. CT head negative for any acute abnormalities. Chest x-ray unremarkable. EKG nonspecific T wave changes, troponins x1 negative. Due to patient's risk factors of being a smoker, -Bruneian, hypertension and positive family history of CAD hospitalist was consulted for admission. Past Medical History Cardiac Medical History: Reports: Hypertension Pulmonary Medical History: Reports: Bronchitis Social History Smoking Status: Never Smoker - Advance Directive Resuscitation Status: Full Code Family History Family History: Reviewed & Not Pertinent Parental Family History Reviewed: Yes - CAD Children Family History Reviewed: Yes Sibling(s) Family History Reviewed.: Yes Medication/Allergy Home Medications: Albuterol Sulfate [Proair HFA Inhalation Aerosol 8.5 gm MDI] 2 puff IH Q4H PRN #1 mdi 06/23/18 Hydrocodone Bit/Homatropine [Hycodan Syrup 5-1.5 mg/5 ml Ud Cup] 5 ml PO Q4HP PRN #120 ml 09/28/17 Prednisone 60 mg PO DAILY #15 tablet 09/28/17 Albuterol Sulfate [Ventolin Hfa] 1 - 2 puff IH Q4 PRN #1 hfa.aer.ad 10/13/17 Benzonatate [Tessalon Perles 100 mg Capsule] 100 mg PO Q8HP PRN #20 capsule 10/13/17 Famotidine [Pepcid 20 mg Tablet] 20 mg PO DAILY #12 tablet 10/13/17 Prednisone [Deltasone 20 mg Tablet] 3 tab PO DAILY 5 Days #15 tablet 10/13/17 Allergies/Adverse Reactions: No Known Allergies Allergy (Verified 01/01/19 11:14) Review of Systems Review of Systems: as per hpi Physical Exam Vital Signs: Temp Pulse Resp BP Pulse Ox 97.8 F 20 139/89 H 98 01/01/19 13:01 01/01/19 13:01 01/01/19 13:01 01/01/19 13:01 General appearance: PRESENT: no acute distress, well-developed, well-nourished Head exam: PRESENT: atraumatic, normocephalic Eye exam: PRESENT: conjunctiva pink, EOMI, PERRLA. ABSENT: scleral icterus Ear exam: PRESENT: normal external ear exam Mouth exam: PRESENT: moist, tongue midline Neck exam: ABSENT: carotid bruit, JVD, lymphadenopathy, thyromegaly Respiratory exam: PRESENT: clear to auscultation priya. ABSENT: rales, rhonchi, wheezes Cardiovascular exam: PRESENT: RRR. ABSENT: diastolic murmur, rubs, systolic murmur Pulses: PRESENT: normal dorsalis pedis pul Vascular exam: PRESENT: normal capillary refill GI/Abdominal exam: PRESENT: normal bowel sounds, soft. ABSENT: distended, guarding, mass, organolmegaly, rebound, tenderness Rectal exam: PRESENT: deferred Extremities exam: PRESENT: full ROM. ABSENT: calf tenderness, clubbing, pedal edema Neurological exam: PRESENT: alert, awake, oriented to person, oriented to place, oriented to time, oriented to situation, CN II-XII grossly intact. ABSENT: motor sensory deficit Psychiatric exam: PRESENT: appropriate affect, normal mood. ABSENT: homicidal ideation, suicidal ideation Skin exam: PRESENT: dry, intact, warm. ABSENT: cyanosis, rash Results Laboratory Results: 01/01/19 11:27 01/01/19 11:27 01/01/19 01/01/19 11: 11:27 WBC 6.4 RBC 4.60 Hgb 13.8 Hct 41.8 MCV 91 MCH 30.0 MCHC 32.9 RDW 13.8 Plt Count 214 Seg Neutrophils % 56.0 Sodium 139.8 Potassium 4.1 Chloride 105 Carbon Dioxide 26 Anion Gap 9 BUN 12 Creatinine 1.01 Est GFR ( Amer) > 60 Glucose 93 Calcium 8.8 Total Bilirubin 0.7 AST 21 Alkaline Phosphatase 77 Total Protein 6.7 Albumin 4.0 01/01/19 01/01/19 11:27 11:27 Creatine Kinase 208 H CK-MB (CK-2) 1.63 Troponin I < 0.012 Impressions: Chest X-Ray 01/01/19 11:17 IMPRESSION: NO ACUTE RADIOGRAPHIC FINDING IN THE CHEST. Head CT 01/01/19 12:14 IMPRESSION: No acute intracranial pathology. EVIDENCE OF ACUTE STROKE: NO. Assessment and Plan - Diagnosis (1) Chest pain Qualifiers: Chest pain type: other chest pain Qualified Code(s): R07.89 - Other chest pain; R07.8 - Other chest pain Is this a current diagnosis for this admission?: Yes Plan: In the absence of typical chest pain, elevated troponins and acute EKG changes unlikely this is cardiac related. Due to patient's risk factors such as heavy smoking, hypertension and positive family history will admit to telemetry observation. Start on antiplatelets, statins, trend troponins, sublingual nitroglycerin, morphine, will get hemoglobin A1c, lipid panel and Cardiolite stress test for further risk stratification. (2) Tobacco abuse Is this a current diagnosis for this admission?: Yes Plan: Advised on quitting. Nicotine patch will be provided.
[2019-01-01] MEDS ORDERED: HYDRALAZINE HCL INJ/PF 20 MG/1 ML SDV IV PRN (15:00)
[2019-01-01] MEDS ORDERED: LISINOPRIL 5 MG TABLET PO SCH (15:15)
[2019-01-01] MEDS: ACETAMINOPHEN 325 MG TABLET PO PRN ×2 (16:35→21:58)
[2019-01-01] MEDS ORDERED: NITROGLYCERIN 0.4 MG/TAB 25 TAB/BOTTLE SL PRN (16:44)
[2019-01-01] MEDS ORDERED: MORPHINE SULFATE 10 MG/ML INJ IV PRN (16:44)
[2019-01-01 19:14] LABS: URINE AMPHETAMINES SCREEN NEGATIVE; URINE BARBITURATES SCREEN NEGATIVE; URINE BENZODIAZEPINES SCREEN NEGATIVE; URINE COCAINE SCREEN NEGATIVE; URINE MARIJUANA (THC) SCREEN NEGATIVE; URINE METHADONE SCREEN NEGATIVE; URINE PHENCYCLIDINE SCREEN NEGATIVE
[2019-01-01] MEDS: FAMOTIDINE 20 MG TABLET PO SCH (21:58)
[2019-01-01] MEDS ORDERED: ATORVASTATIN CALCIUM 40 MG TABLET PO SCH (22:00)
[2019-01-02] MEDS: ACETAMINOPHEN 325 MG TABLET PO PRN (05:01)
[2019-01-02 05:51] LABS: ABSOLUTE EOSINOPHILS # (AUTO) 0.1 10^3/uL (0.0-0.6); ABSOLUTE LYMPHOCYTES (AUTO) 2.5 10^3/uL (0.5-4.7); ABSOLUTE MONOCYTES (AUTO) 0.5 10^3/uL (0.1-1.4); ABSOLUTE NEUT (AUTO) 3.2 10^3/uL (1.7-8.2); BASOPHILS % (AUTO) 0.7 % (0-2); EOSINOPHILS % (AUTO) 1.7 % (0-6); HEMATOCRIT 40.1 % (37.9-51.0); LYMPHOCYTES % (AUTO) 39.1 % (13-45); MEAN CORPUSCULAR HEMOGLOBIN 29.6 pg (27.0-33.4); MEAN CORPUSCULAR HGB CONC 32.5 g/dL (32.0-36.0); MEAN CORPUSCULAR VOLUME 91 fl (80-97); MONOCYTES % (AUTO) 8.6 % (3-13); PLATELET COUNT 219 10^3/uL (150-450); RED BLOOD COUNT 4.41 10^6/uL (4.35-5.55); RED CELL DISTRIBUTION WIDTH 13.4 % (11.5-14.0); SEGMENTED NEUTROPHILS % (AUTO) 49.9 % (42-78); TOTAL CELLS COUNTED % (AUTO) 100 %; WHITE BLOOD COUNT 6.3 10^3/uL (4.0-10.5)
[2019-01-02 06:06] LABS: CHOLESTEROL 60.19 mg/dL (0-200); TRIGLYCERIDES 121 mg/dL (<150)
[2019-01-02 06:13] LABS: ANION GAP 7 (5-19); BLOOD UREA NITROGEN 12 mg/dL (7-20); CALCIUM 8.5 mg/dL (8.4-10.2); CARBON DIOXIDE 26 mmol/L (22-30); CHLORIDE 107 mmol/L (98-107); GLUCOSE 101 mg/dL (75-110)
[2019-01-02 06:16] LABS: DIRECT LDL 38 mg/dL (<100)
[2019-01-02] MEDS ORDERED: LISINOPRIL 5 MG TABLET PO SCH (10:00)
[2019-01-02] MEDS ORDERED: ASPIRIN 81 MG TABLET, CHEWABLE PO SCH (10:00)
[2019-01-02] MEDS ORDERED: ENOXAPARIN SODIUM INJ 40 MG/0.4 ML DISP.SYRIN SUBCUT SCH (10:00)
[2019-01-02 10:03] VITALS: BP 148/96
[2019-01-02] MEDS ORDERED: REGADENOSON INJ 0.4 MG/5 ML DISP.SYRIN IV ONE (13:29)
[2019-01-02] MEDS: FAMOTIDINE 20 MG TABLET PO SCH (13:35)
--- NOTE | 2019-01-03 00:24 | DRAGON STRESS TEST REPORT ---
Intravenous Lexiscan Cardiolite stress test using single photon emmision computerized tomography. Date of procedure: 01/02/2019. Ordering Provider: Dr. Orellana. Patient's status: In Patient. Indication: Chest pain. Coronary risk factors: Age, hypertension, dyslipidemia, tobacco abuse disorder, and family history of coronary artery disease. Resting EKG: Sinus Rhythm. Diffuse nonspecific T inversion. Stress EKG: No changes of ischemia. She had no chest pain or discomfort, and there is no arrhythmia seen. Reason for termination: Protocol. Conclusions: Normal EKG and hemodynamic response to IV Lexiscan. Nuclear data: At rest the patient was given 12.09 millicuries of technetium 99m sestamibi injected intravenously. As per protocol rest non gated SPECT images were obtained. Subsequently the patient was given intravenous Lexiscan at a dose of 0.4 mg in 5 mL intravenously, followed by flush with normal saline. Subsequently the stress dose of 38.8 millicuries of technetium 99m sestamibi was injected intravenously. As per protocol stress gated images were obtained. Nuclear interpretation: Review of images showed that all segments of the myocardium had normal perfusion at rest, and normal perfusion post stress with IV Lexiscan. All segments of the myocardium had normal motion, contraction, and thickening by gated study. T. I D. ratio was normal at 1.11. There is no transient ischemic dilatation of the left ventricle. Computer read rest, and stress left ventricular ejection fraction were 56 %, and 53 %, respectively. Visually both the stress and rest ejection fractions were normal, and greater than 55%. Conclusion: 1. There is no scintigraphic evidence of Lexiscan induced myocardial ischemia. 2. There is no scintigraphic evidence of myocardial infarction/scar. Recommendations: Aggressive risk factor modification, and treating the underlying co- morbidities. [facility]
--- NOTE | 2019-01-03 08:53 | EKG REPORT ---
SEVERITY:- ABNORMAL ECG - SINUS RHYTHM CONSIDER ANTEROSEPTAL INFARCT BORDERLINE T ABNORMALITIES, INFERIOR LEADS : Confirmed by: Rabia Tapia 03-Jan-2019 08:52:33
--- NOTE | 2019-01-08 11:45 | Left Against Medical Advice ---
Against Medical Advice Admission Date/Time: 01/01/19 13:07 Primary Care Provider: RAJNI MODI MD Date of Patient Emigration: 01/02/19 - Diagnosis: (1) Chest pain Is this a current diagnosis for this admission?: Yes (2) Tobacco abuse Is this a current diagnosis for this admission?: Yes - Summary: Summary: Please see Admission and Progress Notes as well. VANESSA SYLVESTER JR is a 53 M, who LEFT AGAINST MEDICAL ADVICE. The Patient was admitted on 01/01/19 13:07. VANESSA SYLVESTER JR is a 53 year old male past medical history of untreated hypertension, heavy smoker for the last 30 years, presenting to ED complaining of chest pain. Brought in to ED via EMS from PCP after complaining of left-sided chest pain, left-sided numbness and tingling, was given 324 mg aspirin, sublingual nitroglycerin which resolved his chest pain. Pain is started yesterday, at 8 PM, left-sided, sharp, lasted about 10 minutes then resolved, worse with movement, alleviated by rest. This morning when he woke up and moved to the side he left-sided chest pain and left-sided numbness and tingling of his arms and legs, lasted about 30 minutes, able to ambulate, female real estate photographer urged him to go to see PCP, went to [facility], EMS was called and patient brought to [facility]. Chest pain left-sided, sharp, 4/5, worse with movement alleviated with nitroglycerin, associated with left-sided numbness and tingling, denies any diaphoresis, lightheadedness, palpitation. Patient is a heavy smoker, family history is positive CAD in her mother side, of [place] at age 48, was told he has high blood pressure but is not taking any medication. On my encounter patient comfortably resting in bed, chest pain resolved, denies any shortness of breath, nausea, vomiting, diarrhea, abdominal pain, hematuria, constipation, urinary symptoms. CT head negative for any acute abnormalities. Chest x-ray unremarkable. EKG nonspecific T wave changes, troponins x1 negative. Due to patient's risk factors of being a smoker, -Cymraes, hypertension and positive family history of CAD hospitalist was consulted for admission. Troponins remained negative and pt was admitted to telemetry and Nuclear Stress test was done and reported as negative but unfortunately left AMA before receiving or discussing the results.
== END 2019-01-02 14:20 | disposition left against medical advice (07) ==
LOC: ER 10:59 → EH 13:07 → 5 14:37
PROVIDERS: ADMIT Internal Medicine; ATTEND Internal Medicine
DX: R07.89 Other chest pain (principal); F17.210 Nicotine dependence, cigarettes, uncomplicated; I10 Essential (primary) hypertension; R20.0 Anesthesia of skin; R20.2 Paresthesia of skin; R53.83 Other fatigue; Z82.49 Family history of ischemic heart disease and other diseases of the circulatory system
CPT/HCPCS: 93005; 99285; 36415 ×2; 82553; 82550; 85025 ×2; 80048; 80053; 84484 ×2; 80307; 83036; 80061; 93017; 71046; 78452; 70450; 93010; G0378 ×3; A9500; J2785; J3490 ×7; J2270; J7030; Q9969

== ENCOUNTER 2019-01-06 17:00 | Emergency (ER) | payer MEDICAID ==
--- NOTE | 2019-01-06 18:24 | ER Document Report ---
ED General - General Chief Complaint: Arm Problem Stated Complaint: ARM SWELLING Time Seen by Provider: 01/06/19 17:45 Primary Care Provider: RAJNI MODI MD [Primary Care Provider] - Follow up as needed Notes: 53-year-old male presents the emergency department complaining of right arm swelling and pain that started on the after getting IV inserted and has been getting progressively worse since then. Denies any numbness, tingling, weakness, fevers. Denies any discharge. Patient states that the swelling is mostly over his right bicep as is the pain. Denies any pain or swelling radiating into his lower arm. Patient also states that he would like his results. Patient states that he left the hospital prior to getting his results when he was admitted on the for chest pain. Patient denies having any chest pain today. He did have some pain a few days after leaving the hospital but is not currently having any and has not had some for the past several days. TRAVEL OUTSIDE OF THE [place] IN LAST 30 DAYS: No - Related Data Allergies/Adverse Reactions: No Known Allergies Allergy (Verified 01/06/19 17:37) Past Medical History - General Information source: Patient - Social History Smoking Status: Current Every Day Smoker Chew tobacco use (# tins/day): No Frequency of alcohol use: None Drug Abuse: None Family History: Reviewed & Not Pertinent Patient has suicidal ideation: No Patient has homicidal ideation: No - Past Medical History Cardiac Medical History: Reports: Hx Hypertension Pulmonary Medical History: Reports: Hx Bronchitis Renal/ Medical History: Denies: Hx Peritoneal Dialysis - Immunizations Hx Diphtheria, Pertussis, Tetanus Vaccination: No Review of Systems - Review of Systems Constitutional: No symptoms reported Cardiovascular: See HPI Musculoskeletal: See HPI Skin: See HPI -: Yes All other systems reviewed and negative Physical Exam - Vital signs Vitals: Temp Pulse BP Pulse Ox 98.7 F 103 H 154/105 H 97 01/06/19 17:10 01/06/19 17:10 01/06/19 17:10 01/06/19 17:10 Interpretation: Hypertensive, Tachycardic - Notes Notes: GENERAL: Alert, interacts well. No acute distress. HEAD: Normocephalic, atraumatic EYES: Pupils equal, round and reactive to light, extraocular movements intact. ENT: Oral mucosa moist, tongue midline. NECK: Full range of motion, supple, trachea midline. LUNGS: Clear to auscultation bilaterally, no wheezes, rales or rhonchi, no respiratory distress. HEART: Regular rate and rhythm, no murmurs, gallops, rubs. EXTREMITIES: Moves all 4 extremities spontaneously, no edema, radial pulses 2/4 bilaterally. No cyanosis. NEUROLOGICAL: Alert and oriented x3, normal speech. Sensation is intact to the hand, 5 out of 5 muscle strength, good nail galvanizer, no difficulty resisting flexion or extension. PSYCH: Normal mood, normal affect. SKIN: Erythema noted to the right antecubital fossa and progressing upwards to cover the entire biceps muscle on the right, there is some edema, tender to palpation, hot to the touch, no discharge. No lymphangitic streaking. Course - Re-evaluation Re-evalutation: 01/06/19 21:06 CBC unremarkable, coags normal, CMP grossly unremarkable only slightly elevated glucose at 129, troponin negative. Venous Doppler is preliminarily negative. There is no evidence of abscess on the ultrasound. Patient appears to have a cellulitis/superficial thrombophlebitis which is likely infected. Patient will be treated with Bactrim and Keflex. Discharged home with advice on warm compresses. - Vital Signs Vital signs: Temp Pulse Resp BP Pulse Ox 98.7 F 103 H 154/105 H 97 01/06/19 17:10 01/06/19 17:10 01/06/19 17:10 01/06/19 17:10 - Laboratory Result Diagrams: 01/06/19 18:24 01/06/19 18:24 Laboratory results interpreted by me: 01/06/19 18:24 Glucose 129 H Discharge - Discharge Clinical Impression: Right arm cellulitis, Thrombophlebitis arm Condition: Stable Disposition: HOME, SELF-CARE Additional Instructions: Apply warm wet compresses to the area for 20 minutes every hour while you are awake. This will help to resolve the infection in the very superficial blood clot that you have. Please take the antibiotics directed as below they are gone. Please use ibuprofen (Motrin or Advil) 600-800 mg every 8 hours as needed for pain or fever. You may also use acetaminophen (Tylenol) 1000 mg every 4-6 hours as needed for pain or fever. Please be aware that many medications contain acetaminophen, do not exceed a total of 1000 mg of acetaminophen every 6 hours. Please return to the emergency department for fever, increasing pain, increasing swelling or streaking of redness away from the area that is already red. Your stress test did not show any signs that you are actively having a heart attack or that you need a heart catheterization. It did say that you need "aggressive risk factor reduction" please follow-up with your primary care physician in [place] to discuss checking for signs of diabetes and making sure that your high blood pressure is well controlled. Is also very important that you quit smoking. Prescriptions: Sulfamethoxazole/Trimethoprim [Bactrim Ds Tablet] 1 each PO BID #20 tablet Cephalexin Monohydrate [Keflex 500 mg Capsule] 1,000 mg PO BID #40 capsule Referrals: RAJNI MODI MD [Primary Care Provider] - Follow up as needed
[2019-01-06 18:38] LABS: ABSOLUTE BASOPHILS # (AUTO) 0.1 10^3/uL (0.0-0.2); ABSOLUTE EOSINOPHILS # (AUTO) 0.1 10^3/uL (0.0-0.6); ABSOLUTE LYMPHOCYTES (AUTO) 2.1 10^3/uL (0.5-4.7); ABSOLUTE MONOCYTES (AUTO) 0.8 10^3/uL (0.1-1.4); BASOPHILS % (AUTO) 0.8 % (0-2); EOSINOPHILS % (AUTO) 1.3 % (0-6); HEMATOCRIT 41.6 % (37.9-51.0); HEMOGLOBIN 13.5 g/dL (13.5-17.0); LYMPHOCYTES % (AUTO) 25.5 % (13-45); MEAN CORPUSCULAR HEMOGLOBIN 29.5 pg (27.0-33.4); MEAN CORPUSCULAR HGB CONC 32.4 g/dL (32.0-36.0); MEAN CORPUSCULAR VOLUME 91 fl (80-97); MONOCYTES % (AUTO) 10.4 % (3-13); PLATELET COUNT 255 10^3/uL (150-450); RED BLOOD COUNT 4.57 10^6/uL (4.35-5.55); RED CELL DISTRIBUTION WIDTH 13.4 % (11.5-14.0); TOTAL CELLS COUNTED % (AUTO) 100 %
[2019-01-06 18:45] LABS: INTERNATIONAL RATION (INR) 0.99; PROTHROMBIN TIME 13.1 SEC (11.4-15.4)
[2019-01-06] MEDS ORDERED: HYDROCODONE/ACETAMINOPHEN 5-325 MG TABLET PO ONE (18:50)
[2019-01-06 18:58] LABS: ALKALINE PHOSPHATASE 81 U/L (38-126); ANION GAP 8 (5-19); ASPARTATE AMINO TRANSFERASE 24 U/L (17-59); BILIRUBIN,DIRECT 0.1 mg/dL (0.0-0.4); BILIRUBIN,TOTAL 0.6 mg/dL (0.2-1.3); BLOOD UREA NITROGEN 9 mg/dL (7-20); CALCIUM 9.3 mg/dL (8.4-10.2); CARBON DIOXIDE 27 mmol/L (22-30); CHLORIDE 106 mmol/L (98-107); GLUCOSE 129 mg/dL (75-110)
[2019-01-06] MEDS ORDERED: HYDROCODONE/ACETAMINOPHEN 5-325 MG (6 TAB/ER DISP) PO PRN (21:15)
[2019-01-06] MEDS ORDERED: CEPHALEXIN 500 MG CAPSULE PO ONE (21:17)
[2019-01-06] MEDS ORDERED: SULFAMETHOXAZOLE/TRIMETHOPRIM 800-160 MG TABLET PO ONE (21:17)
[2019-01-06 21:38] VITALS: BP 149/102
--- NOTE | 2019-01-07 08:11 | RADIOLOGY REPORT (SQ) ---
EXAM DESCRIPTION: VENOUS UNILATERAL UPPER COMPLETED DATE/TIME: 01/06/2019 7:52 pm REASON FOR STUDY: right arm swelling, redness, pain, r/o DVT, abcess COMPARISON: None. TECHNIQUE: Dynamic and static rubi scale and color images acquired of the right arm venous system. S elected spectral images acquired with additional compression and augmentation maneuvers. The contrala teral subclavian vein and internal jugular vein were also imaged. Images stored on PACS. LIMITATIONS: None. FINDINGS: INTERNAL JUGULAR VEIN: Normal phasicity, compression, augmentation. No visualized echogeni c material on rubi scale. No defects on color images. Comparison opposite side normal. SUBCLAVIAN VEIN: Normal compression, augmentation. No visualized echogenic material on rubi scale. No defects on color images. AXILLARY VEIN: The axillary vein could not be visualized. BRACHIAL VEIN: Normal compression, augmentation. No visualized echogenic material on rubi scale. No d efects on color images. BASILIC VEIN: Normal compression, augmentation. No visualized echogenic material on rubi scale. No de fects on color images. CEPHALIC VEIN: Normal compression, augmentation. No visualized echogenic material on rubi scale. No d efects on color images. OTHER: No other significant finding. IMPRESSION: Nonvisualization of the right axillary vein. Remainder of the deep and superficial syst em is patent. COMMENT: This report was called to DEYSI BERMUDEZ DO [id number] hours on 01/07/2019. Preliminary poor was called by the medical technologist microbiology. TECHNICAL DOCUMENTATION: JOB ID: [id number] [email or web address]- All Rights Reserved Reading location - IP/workstation name: [email or web address]
== END 2019-01-06 21:38 | disposition home or self-care (01) ==
LOC: ER 17:00
DX: L03.113 Cellulitis of right upper limb (principal); I80.8 Phlebitis and thrombophlebitis of other sites; F17.200 Nicotine dependence, unspecified, uncomplicated; I10 Essential (primary) hypertension
CPT/HCPCS: 36415; 87040; 85025; 85610; 85730; 80053; 84484; 93971; J3490

== ENCOUNTER 2019-01-16 00:04 | Emergency (ER) | payer MEDICAID ==
[2019-01-16] MEDS ORDERED: CEPHALEXIN 500 MG CAPSULE PO ONE (02:06)
--- NOTE | 2019-01-16 02:11 | ER Document Report ---
ED General - General Chief Complaint: Cough Stated Complaint: COUGH Time Seen by Provider: 01/16/19 01:49 Primary Care Provider: RAJNI MODI MD [Primary Care Provider] - Follow up as needed TRAVEL OUTSIDE OF THE [place] IN LAST 30 DAYS: No - HPI Notes: 53-year-old male presents with sore throat difficult he swallowing. Ongoing the last day or 2. No fever, worse on laying flat. Moderate intensity, gradual onset, nonradiating. Denies any history of HIV. No fever. Initially denied any use of inhalational cocaine/smoking crack, however, states he used to do it but not anymore. No other modifying factors, no other associated symptoms, no other provocative or palliative factors. - Related Data Allergies/Adverse Reactions: No Known Allergies Allergy (Verified 01/06/19 17:37) Past Medical History - Social History Smoking Status: Current Every Day Smoker Chew tobacco use (# tins/day): No Frequency of alcohol use: None Drug Abuse: None Family History: Reviewed & Not Pertinent Patient has suicidal ideation: No Patient has homicidal ideation: No - Past Medical History Cardiac Medical History: Reports: Hx Hypertension Pulmonary Medical History: Reports: Hx Bronchitis Renal/ Medical History: Denies: Hx Peritoneal Dialysis - Immunizations Hx Diphtheria, Pertussis, Tetanus Vaccination: No Review of Systems - Review of Systems Notes: Review of systems as in the history of present illness, otherwise negative x 10 systems. Physical Exam - Vital signs Vitals: Temp Pulse Resp BP Pulse Ox 98.6 F 83 17 155/94 H 100 01/16/19 00:20 01/16/19 00:20 01/16/19 00:20 01/16/19 00:20 01/16/19 00:20 - Notes Notes: General: Well developed . HEENT: Normocephalic, atraumatic. Pupils equal round reactive to light. No JVD. Moderate uvular edema and erythema Chest: No trauma. Respiratory: Good air exchange, normal excursion. Cardiac: Regular rhythm. No murmurs or gallops. Abdomen: Soft, benign. Nondistended. Nontender. Back: No asymmetry or gross abnormality. Motor: Grossly normal power and tone. Neurologic: Alert, nonfocal. Cranial nerves II-12 are intact. Sensation intact. Vascular: Well perfused. Normal peripheral pulses. Skin: No petechiae or purpura. Course - Re-evaluation Re-evalutation: 01/16/19 02:08 53-year-old male presents with what appears to be uvulitis, may be factious, viral versus bacterial. May be traumatic such as from gas inhalation. This point he is stable, protecting his airway easily, isolated uvulitis, will err on the side of caution and treat with an antibiotic. Should he develop any worsening symptoms, will return immediately. - Vital Signs Vital signs: Temp Pulse Resp BP Pulse Ox 98.6 F 83 17 155/94 H 100 01/16/19 00:20 01/16/19 00:20 01/16/19 00:20 01/16/19 00:20 01/16/19 00:20 Discharge - Discharge Clinical Impression: Uvulitis Disposition: HOME, SELF-CARE Instructions: Sore Throat ([facility]) Prescriptions: Cephalexin Monohydrate [Keflex 500 mg Capsule] 500 mg PO QID #28 capsule Referrals: RAJNI MODI MD [Primary Care Provider] - Follow up as needed
[2019-01-16 02:15] VITALS: BP 150/87
== END 2019-01-16 02:15 | disposition home or self-care (01) ==
LOC: ER 00:04
DX: K12.2 Cellulitis and abscess of mouth (principal); R05 Cough; F17.200 Nicotine dependence, unspecified, uncomplicated; I10 Essential (primary) hypertension
CPT/HCPCS: 87070; 87880; 99283

== ENCOUNTER 2019-03-07 22:56 | Emergency (ER) | payer MEDICAID ==
[2019-03-08] MEDS ORDERED: LIDOCAINE 1%/EPINEPHRINE INJ 20 ML VIAL INJ ONE (05:27)
[2019-03-08] MEDS ORDERED: DIPH/PERTUSS(ACELL)/TETANUS VAC/PF 0.5 ML SYR (>=10YO) IM ONE (05:27)
--- NOTE | 2019-03-08 06:32 | ER Document Report ---
HPI - HPI Time Seen by Provider: 03/08/19 05:19 Pain Level: Denies Context: 53-year-old male with hypertension noncompliant with his antihypertensives presents to the emergency department with chief complaint of a laceration on the left distal forearm over the dorsal medial aspect sustained just prior to arrival. Patient states he does not know how it happened, was wearing a jacket, is unclear if he put his arm through glass. States his tetanus is up-to-date he received a booster this year. Patient able to move his fingers and thumb, show a thumbs up, show the okay sign. - CONSTITUTIONAL Constitutional: DENIES: Fever, Chills - REPRODUCTIVE Reproductive: DENIES: : Past Medical History - Social History Smoking Status: Current Every Day Smoker Frequency of alcohol use: None Drug Abuse: None Family History: Reviewed & Not Pertinent Patient has suicidal ideation: No Patient has homicidal ideation: No - Past Medical History Cardiac Medical History: Reports: Hx Hypertension Pulmonary Medical History: Reports: Hx Bronchitis Renal/ Medical History: Denies: Hx Peritoneal Dialysis - Immunizations Hx Diphtheria, Pertussis, Tetanus Vaccination: No Vertical Provider Document - CONSTITUTIONAL Notes: PHYSICAL EXAMINATION: Reviewed vital signs and charting by RN GENERAL: Alert, interacts well. No acute distress. HEAD: Normocephalic, atraumatic. EYES: Pupils equal and round. Extraocular movements intact. ENT: Oral mucosa moist, tongue midline. NECK: Full range of motion. Trachea midline. EXTREMITIES: Moves all 4 extremities spontaneously. No edema, No cyanosis. Normal distal neurovascular exam left upper extremity, 5/5 strength with flexion extension of left hand DIPs and PIPs PSYCH: Normal affect, normal mood. SKIN: Warm, dry, normal turgor. A 4 mm laceration over the dorsal lateral aspect of the distal left upper extremity, linear, not actively bleeding - INFECTION CONTROL TRAVEL OUTSIDE OF THE [place] IN LAST 30 DAYS: No Course - Re-evaluation Re-evalutation: 03/08/19 06:32 The wound is [4 mm]. The wound was copiously irrigated with normal saline and Shur-Clens. The wound was explored for foreign bodies and none were found. The wound was prepped and draped in the normal sterile fashion. The wound was anesthetized using [lidocaine 1% with epinephrine]. The edges were reapproximated using [4-0 Ethilon]. Bleeding was well controlled and the patient tolerated the procedure well. - Vital Signs Vital signs: Temp Pulse Resp BP Pulse Ox 98.8 F 109 H 20 180/107 H 97 03/07/19 22:59 03/07/19 22:59 03/07/19 22:59 03/07/19 22:59 03/07/19 22:59 Procedures - Laceration/Wound Repair Left Distal Arm Wound length (cm): 2 Wound's Depth, Shape: Superficial, Linear Laceration pre-procedure: Sterile PPE donned Anesthetic type: 1% Lidocaine w/epi Wound explored: Clean, No foreign body removed Wound Debrided: Minimal Wound Repaired With: Sutures Suture Size/Type: 4:0 Post-procedure wound care: Sterile dressing applied Post-procedure NV exam normal: Yes Discharge - Discharge Clinical Impression: Laceration Condition: Good Disposition: HOME, SELF-CARE Instructions: Antibiotic Ointment Protection ([facility]), Laceration Care ([facility]), Soap Cleansing ([facility]) Additional Instructions: Please return to your primary doctor, the ED, or an urgent care in 7 days for suture removal. Return immediately if you develop spreading redness around the wound, pus from the wound, worsening pain, or a fever of >101. Keep the area clean and dry. Wash gently with soap and water twice daily and cover with antibiotic ointment. Referrals: RAJNI MODI MD [Primary Care Provider] - Follow up as needed
[2019-03-08 06:52] VITALS: BP 140/72
== END 2019-03-08 06:48 | disposition home or self-care (01) ==
LOC: ER 22:56
DX: S51.812A Laceration without foreign body of left forearm, initial encounter (principal); W45.8XXA Other foreign body or object entering through skin, initial encounter; I10 Essential (primary) hypertension; F17.200 Nicotine dependence, unspecified, uncomplicated
CPT/HCPCS: 12001; J3490; 99282

== ENCOUNTER 2019-04-11 12:05 | Emergency (ER) | payer MEDICAID ==
[2019-04-11] MEDS ORDERED: HYDROCODONE/ACETAMINOPHEN 5-325 MG TABLET PO ONE (12:38)
[2019-04-11] MEDS ORDERED: LIDOCAINE 1% INJ-PF (10 MG/ML) 30 ML SDV INJ ONE (12:39)
--- NOTE | 2019-04-11 12:43 | ER Document Report ---
ED Medical Screen (RME) - General Chief Complaint: Laceration Stated Complaint: LEFT FINGER LACERATION Time Seen by Provider: 04/11/19 12:35 Primary Care Provider: RAJNI MODI MD [Primary Care Provider] - Follow up as needed Notes: Patient is a 53-year-old male, who is right-handed who presents to the emergency department with a laceration to his left distal fourth finger. Patient is unable to flex his finger at the DIP joint. Patient is up-to-date on his immunizations. Exam: Unable to flex DIP joint of left fourth finger. Laceration noted to the distal fourth finger. About 2 cm in size flap shaped. I have greeted and performed a rapid initial assessment of this patient. A comprehensive ED assessment and evaluation of the patient, analysis of test results and completion of medical decision making process will be conducted by an additional ED providers. TRAVEL OUTSIDE OF THE [place] IN LAST 30 DAYS: No - Related Data Allergies/Adverse Reactions: No Known Allergies Allergy (Verified 04/11/19 12:33) Home Medications: htn Past Medical History - Social History Chew tobacco use (# tins/day): No Frequency of alcohol use: Occasional Drug Abuse: None - Past Medical History Cardiac Medical History: Reports: Hx Hypertension Pulmonary Medical History: Reports: Hx Bronchitis Renal/ Medical History: Denies: Hx Peritoneal Dialysis - Immunizations Hx Diphtheria, Pertussis, Tetanus Vaccination: No Physical Exam - Vital signs Vitals: Temp Pulse Resp BP Pulse Ox 98.6 F 102 H 18 156/108 H 95 04/11/19 12:10 04/11/19 12:10 04/11/19 12:10 04/11/19 12:10 04/11/19 12:10 Course - Vital Signs Vital signs: Temp Pulse Resp BP Pulse Ox 98.6 F 102 H 18 156/108 H 95 04/11/19 12:10 04/11/19 12:10 04/11/19 12:10 04/11/19 12:10 04/11/19 12:10 Doctor's Discharge - Discharge Referrals: RAJNI MODI MD [Primary Care Provider] - Follow up as needed
--- NOTE | 2019-04-11 13:17 | RADIOLOGY REPORT (SQ) ---
EXAM DESCRIPTION: FINGER LEFT COMPLETED DATE/TIME: 04/11/2019 1:01 pm REASON FOR STUDY: laceration; unable to flex dip joint COMPARISON: None. NUMBER OF VIEWS: Three views. TECHNIQUE: AP, lateral, and oblique images acquired of the left fourth finger. LIMITATIONS: None. FINDINGS: MINERALIZATION: Normal. BONES: Laceration left 4th finger ulnar aspect at the DIP joint. There is minimal adjacent irregular ity of the ulnar aspect middle phalanx, possibly a laceration/bony injury marked with an arrow. No w orrisome bone lesions. SOFT TISSUES: Laceration ulnar aspect left 4th finger at the DIP joint. No radiopaque foreign body. 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 There is minimal adjacent irr egularity of the ulnar aspect middle phalanx, possibly a laceration/bony injury marked with an arrow. No radiopaque foreign body TECHNICAL DOCUMENTATION: JOB ID: [id number] [employer]- All Rights Reserved Reading location - IP/workstation name: [facility]
--- NOTE | 2019-04-11 16:37 | ER Document Report ---
ED General - General Chief Complaint: Laceration Stated Complaint: LEFT FINGER LACERATION Time Seen by Provider: 04/11/19 12:35 Primary Care Provider: RAJNI MODI MD [Primary Care Provider] - Follow up as needed Mode of Arrival: Ambulatory Information source: Patient TRAVEL OUTSIDE OF THE [place] IN LAST 30 DAYS: No - HPI Onset: Other - 12 noon, patient reports he was drinking alcohol prior to attempting to remove some palmar surface scabbing with a razor blade and accidentally cut the distal aspect ulnar side of his left ring finger. He is right-handed - Related Data Allergies/Adverse Reactions: No Known Allergies Allergy (Verified 04/11/19 12:33) Home Medications: htn Past Medical History - General Information source: Patient - Social History Smoking Status: Current Every Day Smoker Chew tobacco use (# tins/day): No Frequency of alcohol use: Occasional Drug Abuse: None Family History: Reviewed & Not Pertinent Patient has suicidal ideation: No Patient has homicidal ideation: No - Past Medical History Cardiac Medical History: Reports: Hx Hypertension Pulmonary Medical History: Reports: Hx Bronchitis Renal/ Medical History: Denies: Hx Peritoneal Dialysis - Immunizations Hx Diphtheria, Pertussis, Tetanus Vaccination: No Review of Systems - Review of Systems Constitutional: No symptoms reported EENT: No symptoms reported Cardiovascular: No symptoms reported Respiratory: No symptoms reported Gastrointestinal: No symptoms reported Genitourinary: No symptoms reported Male Genitourinary: No symptoms reported Musculoskeletal: No symptoms reported Skin: Other - Laceration to right ring finger approximately 2 cm in length. Bleeding is minimal to none. Patient has good sensation to his right ring finger pad and has good flexion extension.. denies: No symptoms reported Hematologic/Lymphatic: No symptoms reported Neurological/Psychological: No symptoms reported Physical Exam - Vital signs Vitals: Temp Pulse Resp BP Pulse Ox 98.6 F 102 H 18 156/108 H 95 04/11/19 12:10 04/11/19 12:10 04/11/19 12:10 04/11/19 12:10 04/11/19 12:10 Interpretation: Normal - General General appearance: Appears well, Alert - HEENT Head: Normocephalic, Atraumatic Eyes: Normal Pupils: PERRL - Respiratory Respiratory status: No respiratory distress Chest status: Nontender Breath sounds: Normal Chest palpation: Normal - Cardiovascular Rhythm: Regular Heart sounds: Normal auscultation Murmur: No - Abdominal Inspection: Normal Distension: No distension Bowel sounds: Normal Tenderness: Nontender Organomegaly: No organomegaly - Back Back: Normal, Nontender - Extremities General upper extremity: Normal inspection, Nontender, Normal color, Normal ROM, Normal temperature General lower extremity: Normal inspection, Nontender, Normal color, Normal ROM, Normal temperature, Normal weight bearing. No: Tres's sign - Neurological Neuro grossly intact: Yes Cognition: Normal Orientation: AAOx4 Saurabh Coma Scale Eye Opening: Spontaneous Joffre Coma Scale Verbal: Oriented Saurabh Coma Scale Motor: Obeys Commands Joffre Coma Scale Total: 15 Speech: Normal Motor strength normal: LUE, RUE, LLE, RLE Sensory: Normal - Psychological Associated symptoms: Normal affect, Normal mood - Skin Skin Temperature: Warm Skin Moisture: Dry Skin Color: Normal Notes: Right ring finger laceration as noted per HPI Course - Vital Signs Vital signs: Temp Pulse Resp BP Pulse Ox 98.6 F 102 H 18 156/108 H 95 04/11/19 12:10 04/11/19 12:10 04/11/19 12:10 04/11/19 12:10 04/11/19 12:10 - Diagnostic Test Radiology reviewed: Reports reviewed Procedures - Laceration/Wound Repair Right Distal Finger 4th digit Time completed: 16:41 Wound length (cm): 2.0 Wound's Depth, Shape: Linear Laceration pre-procedure: Chloraprep applied Anesthetic type: Other - none Wound explored: Clean, No foreign body removed Irrigated w/ Saline (mLs): 1 Wound Repaired With: Steri-strips, Dermabond - And tolerated this procedure well. Patient had good sensation prior to and after Steri-Strips and Dermabond. Patient actually preferred Steri-Strips to sutures. He did not want any sutures applied to his fingers. Layer Closure?: No Post-procedure wound care: Splint applied - Aluminum splint with tape applied to the finger by me. Post-procedure NV exam normal: Yes Complications: No Notes: 04/11/19 16:45 Reports he is up-to-date on tetanus and does not need any pain medicine. He was drinking alcohol prior to the laceration Critical Care Note - Critical Care Note Total time excluding time spent on procedures (mins): 30 Discharge - Discharge Clinical Impression: Laceration of finger Condition: Good Disposition: HOME, SELF-CARE Additional Instructions: keep Your wound clean and dry; prior to avoid peeling off your Steri-Strips until the wound has healed.; Follow-up with personal doctor if symptoms of infection or return to ER if symptoms of infection arise; avoid moving your right ring finger during work or at home for at least 3 days Referrals: RAJNI MODI MD [Primary Care Provider] - Follow up as needed
[2019-04-11 17:00] VITALS: BP 146/94
== END 2019-04-11 17:00 | disposition home or self-care (01) ==
LOC: ER 12:05
DX: S61.215A Laceration without foreign body of left ring finger without damage to nail, initial encounter (principal); W26.8XXA Contact with other sharp object(s), not elsewhere classified, initial encounter; Y93.89 Activity, other specified; F17.200 Nicotine dependence, unspecified, uncomplicated; I10 Essential (primary) hypertension; Z79.899 Other long term (current) drug therapy
CPT/HCPCS: 99284

== ENCOUNTER 2019-04-18 22:36 | Emergency (ER) | payer MEDICAID ==
--- NOTE | 2019-04-18 23:45 | RADIOLOGY REPORT (SQ) ---
EXAM DESCRIPTION: XR HAND LEFT 3 VIEWS CLINICAL HISTORY: finger infection, pain in the distal fourth digit COMPARISON: None FINDINGS: AP, lateral and oblique views of the left hand were submitted. There is no discrete acute fracture or dislocation. There is a probable skin laceration medial to the fourth distal interphalangeal joint. No radiopaque foreign bodies or obvious abnormal collections of air are seen. No cortical erosive changes, periosteal elevation or subcortical lucencies are seen. There are moderate or moderate to severe degenerative changes of the first carpometacarpal joint. IMPRESSION: Probable soft tissue laceration of the fourth digit medial to the distal interphalangeal joint. No changes of osteomyelitis are identified radiographically. DJD of the first carpometacarpal joint.
--- NOTE | 2019-04-19 | ER Document Report ---
ED Skin Rash/Insect Bite/Abscs - General Chief Complaint: Skin Problem Stated Complaint: LEFT HAND PAIN Time Seen by Provider: 04/18/19 22:47 Primary Care Provider: RAJNI MODI MD [Primary Care Provider] - Follow up in 3-5 days TRAVEL OUTSIDE OF THE [place] IN LAST 30 DAYS: No - HPI Notes: 53-year-old male to the emergency department with complaints of possible infected finger laceration to his left index finger. He states that he presented to the emergency department on April 11 after he cut his finger with a razor blade. The laceration was repaired with Dermabond and patient was discharged home. He states that since then he has not taken off the dressing and he is concerned that the finger may be infected. He denies any fevers or chills. He admits to some slight swelling to the area around where the laceration was but denies any streaking erythema. He reports a little bit of tenderness to the finger as well. He is right-hand dominant. - Related Data Allergies/Adverse Reactions: No Known Allergies Allergy (Verified 04/11/19 12:33) Past Medical History - General Information source: Patient - Social History Smoking Status: Current Every Day Smoker Frequency of alcohol use: None Drug Abuse: None Lives with: Family Family History: Reviewed & Not Pertinent Patient has suicidal ideation: No Patient has homicidal ideation: No - Past Medical History Cardiac Medical History: Reports: Hx Hypertension Pulmonary Medical History: Reports: Hx Bronchitis Renal/ Medical History: Denies: Hx Peritoneal Dialysis - Immunizations Hx Diphtheria, Pertussis, Tetanus Vaccination: No Review of Systems - Review of Systems Constitutional: denies: Chills, Fever EENT: No symptoms reported Cardiovascular: denies: Chest pain, Palpitations, Heart racing, Orthopnea, Syncope, Dizziness, Lightheaded Respiratory: denies: Cough, Short of breath Gastrointestinal: denies: Abdominal pain, Diarrhea, Nausea, Vomiting Musculoskeletal: See HPI Skin: Other - Laceration to the left medial index finger distally that may be infected Neurological/Psychological: No symptoms reported -: Yes All other systems reviewed and negative Physical Exam - Vital signs Vitals: Temp Pulse Resp BP Pulse Ox 98.8 F 100 20 179/100 H 100 04/18/19 22:41 04/18/19 22:41 04/18/19 22:41 04/18/19 22:41 04/18/19 22:41 Interpretation: Hypertensive - General General appearance: Appears well, Alert In distress: None - HEENT Head: Normocephalic, Atraumatic Eyes: Normal Pupils: PERRL - Respiratory Respiratory status: No respiratory distress Chest status: Nontender Breath sounds: Normal. No: Productive cough, Rales, Rhonchi, Stridor, Wheezing Chest palpation: Normal - Cardiovascular Rhythm: Regular Heart sounds: Normal auscultation Murmur: No - Abdominal Inspection: Normal Distension: No distension Bowel sounds: Normal Tenderness: Nontender Organomegaly: No organomegaly - Extremities Notes: To the left index finger on the medial aspect of the distal phalanx there is a laceration. The laceration appears to have daily hest from repair and there is granulomatosis material with mild erythema. It is mildly tender to palpation and it is slightly edematous. There is no streaking erythema or circumferential edema. There is no tenderness along the flexor sheath. Cap refill is less than 2 seconds. There does not appear to be a tendon laceration. Patient denies any numbness and tingling - Neurological Neuro grossly intact: Yes Cognition: Normal Orientation: AAOx4 [place] Coma Scale Eye Opening: Spontaneous Saurabh Coma Scale Verbal: Oriented Saurabh Coma Scale Motor: Obeys Commands Saurabh Coma Scale Total: 15 Speech: Normal Cranial nerves: Normal Cerebellar coordination: Normal Motor strength normal: LUE, RUE, LLE, RLE Additional motor exam normals: Equal exercise physiologist certified. No: Pronator drift Sensory: Normal - Skin Skin Temperature: Warm Skin Moisture: Dry Skin Color: Normal Skin irregularity: Laceration - see extremity for further discussion of the finger laceration Course - Re-evaluation Re-evalutation: 04/19/19 Impression: Finger laceration with wound dehiscence and concern for mild infection. X-ray is negative for any osteomyelitis. Patient does not have circumferential edema tenderness along the flexor sheath and is not stuck in flexion. We will clean his finger extensively here and dress his finger. We will go ahead and start on Bactroban and doxycycline. He is to see his primary care physician on Saturday for wound check. He has been encouraged to return if his symptoms worsen at all. - Vital Signs Vital signs: Temp Pulse Resp BP Pulse Ox 98.8 F 100 20 179/100 H 100 04/18/19 22:41 04/18/19 22:41 04/18/19 22:41 04/18/19 22:41 04/18/19 22:41 - Diagnostic Test Radiology reviewed: Image reviewed, Reports reviewed Discharge - Discharge Clinical Impression: Infected finger laceration Qualifiers: Encounter type: initial encounter Qualified Code(s): S61.219A - Laceration without foreign body of unspecified finger without damage to nail, initial encounter Condition: Stable Disposition: HOME, SELF-CARE Instructions: Antibiotic Ointment Protection ([facility]), Soap Cleansing ([facility]) Additional Instructions: KEEP WOUND CLEAN AND DRY. CLEANSE EVERY DAY WITH WARM SOAPY WATER. COMPLETE ALL ANTIBIOTICS. FOLLOW UP WITH PRIMARY CARE. RETURN IF WORSENING PAIN, FEVERS, STREAKING REDNESS TO THE FINGER. Prescriptions: Mupirocin [Bactroban 2% Ointment 22 gm] 1 applic TP TID #1 tube Doxycycline Hyclate 100 mg PO BID #20 capsule Referrals: RAJNI MODI MD [Primary Care Provider] - Follow up in 3-5 days
[2019-04-19 00:33] VITALS: BP 155/108
== END 2019-04-19 00:32 | disposition home or self-care (01) ==
LOC: ER 22:36
DX: S61.211A Laceration without foreign body of left index finger without damage to nail, initial encounter (principal); M79.642 Pain in left hand; M79.89 Other specified soft tissue disorders; W26.0XXA Contact with knife, initial encounter; F17.200 Nicotine dependence, unspecified, uncomplicated; I10 Essential (primary) hypertension
CPT/HCPCS: 99283